=== PATIENT | female | born 1950 | race Caucasian/White ===

== ENCOUNTER → 2018-01-25 | Outpatient (CLI) | payer MEDICARE, BC ==
[2018-01-25 16:31] LABS: BASO % 0 % (0-3); EOS # 0.3 x10^3/uL (0.0-0.7); EOS % 3 % (0-3); HEMATOCRIT 42.3 % (36.0-47.0); HEMOGLOBIN 13.8 g/dL (12.0-15.5); LYMPH # 1.9 x10^3/uL (1.0-4.8); LYMPH % 21 % (24-48); MEAN CORPUSCULAR HEMOGLOBIN 32 pg (25-35); MEAN CORPUSCULAR HGB CONC 33 g/dL (31-37); MEAN CORPUSCULAR VOLUME 96 fL (79-100); MONO # 0.9 x10^3/uL (0.0-1.1); MONO % 10 % (0-9); NEUT # 5.8 x10^3uL (1.8-7.7); NEUT % 65 % (31-73); PLATELET COUNT 254 x10^3/uL (140-400); RED BLOOD COUNT 4.39 x10^6/uL (3.50-5.40); RED CELL DISTRIBUTION WIDTH 13.3 % (11.5-14.5); WHITE BLOOD COUNT 8.9 x10^3/uL (4.0-11.0)
== END | disposition home or self-care (01) ==
LOC: LAB 15:49
PROVIDERS: ATTEND Internal Medicine
DX: R10.32 Left lower quadrant pain (principal)
CPT/HCPCS: 36415; 85025

== ENCOUNTER 2019-08-31 20:06 | Inpatient (IN) | payer MEDICARE, BC ==
[~2019-08-31] VITALS: Ht 165.1 cm; Wt 57.2 kg
[2019-08-31] MEDS ORDERED: IV NORMAL SALINE 500ML 500 ML IV ONE ×2 (20:45→21:30)
--- NOTE | 2019-08-31 20:56 | PHYS DOC ---
Past History Past Medical History: Diabetes, High Cholesterol, Hypothyroid, Hypotension, Stroke Past Surgical History: Hip Replacement, Hysterectomy, Tonsillectomy Alcohol Use: None Drug Use: None Adult General Chief Complaint Chief Complaint: SYNCOPE HPI HPI Patient is a 69-year-old female brought in by ambulance history of type 1 diabetes she has a history of a prior stroke she had been on Plavix just get taken off that in July she says that she has coronary artery disease they wanted to a bypass surgery on her but have been reluctant to do so (ACCORDING to the patient the docs at [facility] have said they want her carotid artery (60%) to be fixed before the cabg) she says she has never had a heart attack she says she has no artificial valves in her heart. She is normally followed at [facility]. She does take Lantus at night and Humalog sliding scale after meals. Tonight she was at her's daughters how she had chili for dinner when she was getting into the car to go home she had a witnessed syncopal event family member helped her down so that she did not hit her head. Initial blood pressure was in the 80s and the blood sugar was checked in the 400 range. She is currently feeling much better blood sugars down to 370 blood pressure. baseline creatinine pt tells me is 1.6 she follows with nephrology also has hx of RA, on monthly infusion for that not on steroids. Review of Systems Review of Systems Constitutional: Denies fever or chills [] Eyes: Denies change in visual acuity, redness, or eye pain [] HENT: Denies nasal congestion or sore throat [] Respiratory: Denies cough or shortness of breath [] Cardiovascular: No additional information not addressed in HPI [] Integument: Denies rash or skin lesions [] All other systems were reviewed and found to be within normal limits, except as documented in this note. Current Medications Current Medications Current Medications Medications (Trade) Dose Ordered Sig/Agustin Start Time Stop Time Status Last Admin Dose Admin Sodium Chloride 500 ml @ 0 mls/hr 1X ONCE 08/31/19 20:45 08/31/19 20:47 DC 08/31/19 20:44 500 MLS/HR Allergies Allergies Allergies Coded Allergies Type Severity Reaction Last Updated Verified No Known Drug Allergies 08/31/19 No Physical Exam Physical Exam Constitutional: Well developed, well nourished, no acute distress, non-toxic appearance. [] HENT: Normocephalic, atraumatic, bilateral external ears normal, oropharynx dry, no oral exudates, nose normal. [] Eyes: PERRLA, EOMI, conjunctiva normal, no discharge. [] Neck: Normal range of motion, no tenderness, supple, no stridor. [] Cardiovascular:Heart rate regular rhythm, no murmur [] Lungs & Thorax: Bilateral breath sounds clear to auscultation [] Abdomen: Bowel sounds normal, soft, no tenderness, no masses, no pulsatile masses. [] Skin: Warm, dry, no erythema, no rash. [] Back: No tenderness, no CVA tenderness. [] Extremities: No tenderness, no cyanosis, no clubbing, ROM intact, no edema. [] Neurologic: Alert and oriented X 3, normal motor function, normal sensory function, no focal deficits noted. [] Psychologic: Affect normal, judgement normal, mood normal. [] Current Patient Data Vital Signs Vital Signs Date Time Temp Pulse Resp B/P (MAP) Pulse Ox O2 Delivery O2 Flow Rate FiO2 08/31/19 20:17 98.0 67 18 97 Room Air Lab Results BP 106/46 EKG EKG []Normal sinus rhythm QTC 479 rate 68 no STEMI there is repolarization abnormality in lead 1 and lead aVL. Is evidence of LVH no old EKG ischemia is on the differential but it's probably more likely re-pole abnormality. Radiology/Procedures Radiology/Procedures [] Impressions: CHNIQUE: Single portable radiograph of the chest FINDINGS: Mild cardiomegaly. The lungs are clear bilaterally. The costophrenic sulci are clear and well demarcated. IMPRESSION: No radiographic evidence of an acute cardiopulmonary process. Electronically signed by: Sebastián Rick MD (08/31/2019 9:09 PM) [facility] DICTATED AND SIGNED BY: SEBASTIÁN RICK MD DATE: 08/31/192108 CC: LUIS VANCE MD; MARKY CANTOR Course & Med Decision Making Course & Med Decision Making Pertinent Labs and Imaging studies reviewed. (See chart for details) []Syncope elevated blood sugar 69-year-old female multiple medical problems normally followed at [facility] prior history of CVA was on Plavix up until July 25 apparently has a history of carotid stenosis reports history of multivessel coronary disease awaiting CABG denies any symptoms related to that says does not get chest pain never had NC history of chronic kidney disease baseline creatinine of 1.6 also rheumatoid arthritis on monthly infusions history of hypertension but also has had issues with hypotension she tells me she thinks she was diagnosed with orthostatic hypotension at 1 point, also history of type 1 diabetes Presenting after a syncopal episode apparently had a witnessed syncopal she went down was out for about 20 seconds no seizure activity here workup does reveal a bump in the creatinine of 2.4 patient was hydrated for this noted the bump in troponin no chest pain patient has no events on the desk monitor in the emergency room blood pressure at 9:45 PM is 127/41 map of 79 this was improved it was in the 90s when she first arrives. Urinalysis currently pending I spoke with Dr. perea 920 pm discussed labs, plan to admit fo robs bg is 280 no anion gpa cxr neg for pna Dragon Disclaimer Dragon Disclaimer This electronic medical record was generated, in whole or in part, using a voice recognition dictation system. Departure Departure: Impression: Primary Impression: Elevated blood sugar Additional Impression: Syncope Disposition: ADMITTED INPATIENT Admitting Physician: Yvan Perea Condition: STABLE Referrals: MARKY CANTOR (PCP) Problem Qualifiers LUIS VANCE MD Aug 31, 2019 20:56
[2019-08-31 21:07] LABS: BASO # 0.1 x10^3/uL (0.0-0.2); BASO % 1 % (0-3); EOS # 0.1 x10^3/uL (0.0-0.7); EOS % 1 % (0-3); HEMATOCRIT 40.7 % (36.0-47.0); HEMOGLOBIN 13.6 g/dL (12.0-15.5); LYMPH # 2.4 x10^3/uL (1.0-4.8); LYMPH % 22 % (24-48); MEAN CORPUSCULAR HEMOGLOBIN 32 pg (25-35); MEAN CORPUSCULAR HGB CONC 33 g/dL (31-37); MEAN CORPUSCULAR VOLUME 95 fL (79-100); MONO # 1.3 x10^3/uL (0.0-1.1); MONO % 12 % (0-9); NEUT # 6.8 x10^3uL (1.8-7.7); NEUT % 63 % (31-73); PLATELET COUNT 235 x10^3/uL (140-400); RED BLOOD COUNT 4.28 x10^6/uL (3.50-5.40); RED CELL DISTRIBUTION WIDTH 13.3 % (11.5-14.5); WHITE BLOOD COUNT 10.7 x10^3/uL (4.0-11.0)
--- NOTE | 2019-08-31 21:12 | RAD ---
EXAM: CHEST 1 VIEW History: Syncope COMPARISON: None available. TECHNIQUE: Single portable radiograph of the chest FINDINGS: Mild cardiomegaly. The lungs are clear bilaterally. The costophrenic sulci are clear and well demarcated. IMPRESSION: No radiographic evidence of an acute cardiopulmonary process. Electronically signed by: Sebastián Rick MD (08/31/2019 9:09 PM) [facility]
[2019-08-31 21:13] LABS: ALBUMIN 3.4 g/dL (3.4-5.0); ALBUMIN/GLOBULIN RATIO 1.1 (1.0-1.7); CALCIUM 8.5 mg/dL (8.5-10.1); CREATININE 2.4 mg/dL (0.6-1.0); GFR 20.1; MAGNESIUM 2.4 mg/dL (1.8-2.4); POTASSIUM 4.5 mmol/L (3.5-5.1); TOTAL BILIRUBIN 0.3 mg/dL (0.2-1.0); TOTAL PROTEIN 6.4 g/dL (6.4-8.2)
[2019-08-31] MEDS ORDERED: ASPIRIN 81 MG TAB.CHEW ONE (21:30)
[2019-08-31] MEDS ORDERED: ASPIRIN 81 MG TAB.CHEW PO ONE (22:00)
[2019-08-31 22:20] LABS: BACTERIA,URINE MANY /HPF (0-FEW); BILIRUBIN,URINE NEG (NEG); CLARITY,URINE CLOUDY; COLOR,URINE YELLOW; GLUCOSE,URINE >=1000 mg/dL (NEG); NITRITE,URINE POS (NEG); RBC,URINE OCC /HPF (0-2); UROBILINOGEN,URINE 0.2 mg/dL (0.2 mg/dL)
[2019-08-31] MEDS: IV NORMAL SALINE 1,000ML 1,000 ML IV SCH (22:26)
[2019-08-31 22:50] VITALS: BP 134/56
--- NOTE | 2019-08-31 23:20 | NUR ---
The patient, SIOBHAN SPANN, 69 y/o, F admitted by CAL CONTRERAS MD, was given written information regarding hospital policies, unit procedures and contact persons. Home medications and past medical/surgical history were verified with patient. Bed locked and in lowest position, call light within reach. Valuables were checked and taken home by family.
[2019-08-31] MEDS ORDERED: CRESTOR20 MG PO (23:45)
[2019-08-31] MEDS ORDERED: LEVO125T PO (23:45)
[2019-08-31] MEDS ORDERED: METO25TA4 PO (23:45)
[2019-08-31] MEDS ORDERED: LOSA25TA11 PO (23:45)
[2019-08-31] MEDS ORDERED: BRIM5DRO2 OP (23:45)
[2019-08-31] MEDS ORDERED: INSU100V8 SQ (23:45)
[2019-08-31] MEDS ORDERED: INSU100C SQ (23:45)
[2019-09-01] VITALS (25 sets, daily range): BP systolic 92–159; BP diastolic 35–71
--- NOTE | 2019-09-01 03:50 | EKG ---
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
[2019-09-01 05:13] LABS: CALCIUM 7.3 mg/dL (8.5-10.1); GFR 24.9
[2019-09-01] MEDS ORDERED: DEXTROSE 50% 25 GM / 50ML DISP.SYRIN. IV PRN (07:30)
--- NOTE | 2019-09-01 07:52 | PDOC2 ---
TOMY MOMIN [employer]YE[employer]ITCHER 09/01/19 0752: CARDIAC CONSULT DATE OF CONSULT Date Of Consult DATE: 09/01/19 TIME: 07:45 REASON FOR CONSULT Reason for Consult syncope, cardiac history REFERRING PHYSICIAN Referring Physician Dr. Robles SOURCE Source: Chart review, Patient HPI History of Present Illness This is a 69 yo female who presented secondary to syncopal events. Son was assisting the patient out of the car when she had a syncopal episode. Patient reports she had just stood and and then felt slightly dizzy prior to passing out. Son was able to assist her down the garage floor. EMS was called. She denies any chest pain, palpitations, shortness of breath, or nausea/vomiting. Reports recent cardiac cath PAST MEDICAL HISTORY Cardiovascular: CAD, HTN CENTRAL NERVOUS SYSTEM: CVA, Periperal neuropathy Rheumatologic: Rheumatoid arthritis Renal/: Chronic renal insuff Endocrine: Diabetes, Hypothyroidism PAST SURGICAL HISTORY Past Surgical History: Hysterectomy, Tonsillectomy, Other (thyroidectomy ) FAMILY HISTORY Family History: Other (no pertinent hx) SOCIAL HISTORY Smoke: 1 pack per day ALCOHOL: none Drugs: None Lives: Alone CURRENT MEDICATIONS Current Medications Current Medications Sodium Chloride 500 ml @ 0 mls/hr 1X ONCE IV Last administered on 08/31/19at 20:44; Start 08/31/19 at 20:45; Stop 08/31/19 at 20:47; Status DC Sodium Chloride 500 ml @ 500 mls/hr 1X ONCE IV Last administered on 08/31/19at 21:29; Start 08/31/19 at 21:30; Stop 08/31/19 at 22:29; Status DC Aspirin (Children'S Aspirin) 324 mg 1X ONCE PO Last administered on 08/31/19at 21:30; Start 08/31/19 at 22:00; Stop 08/31/19 at 22:01; Status DC Aspirin (Children'S Aspirin) 81 mg STK-MED ONCE .ROUTE ; Start 08/31/19 at 21:30; Stop 08/31/19 at 21:30; Status DC Sodium Chloride 1,000 ml @ 75 mls/hr [id number] IV Last administered on 08/31/19at 22:26; Start 08/31/19 at 22:30; Stop 09/01/19 at 22:29 Ceftriaxone Sodium 1 gm/ Sodium Chloride 50 ml @ 100 mls/hr 1X ONCE IV Last administered on 08/31/19at 23:15; Start 08/31/19 at 23:00; Stop 08/31/19 at 23:29; Status DC Insulin Glargine (Lantus Syringe) 25 unit HS SQ ; Start 09/01/19 at 21:00 Levothyroxine Sodium (Synthroid) 125 mcg DAILYAC PO ; Start 09/01/19 at 07:30 Brimonidine Tartrate (Alphagan) 1 drop DAILY OU ; Start 09/01/19 at 09:00 Atorvastatin Calcium (Lipitor) 80 mg QHS PO ; Start 09/01/19 at 21:00 Insulin Human Lispro (HumaLOG) 0-7 UNITS TIDWMEALS SQ ; Start 09/01/19 at 08:00 Dextrose (Dextrose 50%-Water Syringe) 12.5 gm PRN Q15MIN PRN IV SEE COMMENTS; Start 09/01/19 at 07:30 Timolol Maleate (Timoptic 0.5% Ophth) 1 drop DAILY OU ; Start 09/01/19 at 09:00 Active Scripts Active Reported Humalog (Insulin Lispro) 100 Unit/1 Ml Cartridge 100 Unit SQ TIDWMEALS PRN Sliding Scale per patients regiman Lantus (Insulin Glargine,Hum.rec.anlog) 100 Unit/1 Ml Vial 25 Unit SQ HS Combigan Eye Drops (Brimonidine Tartrate/Timolol) 5 Ml Drops 5 Ml OP DAILY Metoprolol Tartrate 25 Mg Tablet 25 Mg PO BID Crestor (Rosuvastatin Calcium) 20 Mg Tablet 20 Mg PO HS Losartan Potassium (Losartan Potassium) 25 Mg Tablet 25 Mg PO DAILY Synthroid (Levothyroxine Sodium) 125 Mcg Tablet 125 Mcg PO DAILYAC ALLERGIES Allergies: Coded Allergies: No Known Drug Allergies (Unverified , 08/31/19) ROS Review of Systems 14 point ROS conducted with pertinent positives noted above in HPI. PHYSICAL EXAM General: Alert, Oriented X3, Cooperative, No acute distress HEENT: Atraumatic, Mucous membr. moist/pink Lungs: Clear to auscultation, Normal air movement Heart: Regular rate, Normal S1, Normal S2, Other (2/6 systolic murmur ) Abdomen: Soft, No tenderness Extremities: No edema, Normal pulses Skin: No breakdown Neuro: Normal speech, Sensation intact Psych/Mental Status: Mental status NL, Mood NL MUSCULOSKELETAL: Osteoarthritic changes both hands VITALS Vital Signs Vital Signs Date Time Temp Pulse Resp B/P (MAP) Pulse Ox O2 Delivery O2 Flow Rate FiO2 09/01/19 06:25 98.2 66 18 105/44 (64) 96 Room Air LABS LABS Laboratory Tests Test 08/31/19 20:30 08/31/19 21:54 08/31/19 22:55 09/01/19 04:45 White Blood Count 10.7 x10^3/uL (4.0-11.0) Red Blood Count 4.28 x10^6/uL (3.50-5.40) Hemoglobin 13.6 g/dL (12.0-15.5) Hematocrit 40.7 % (36.0-47.0) Mean Corpuscular Volume 95 fL (79-100) Mean Corpuscular Hemoglobin 32 pg (25-35) Mean Corpuscular Hemoglobin Concent 33 g/dL (31-37) Red Cell Distribution Width 13.3 % (11.5-14.5) Platelet Count 235 x10^3/uL (140-400) Neutrophils (%) (Auto) 63 % (31-73) Lymphocytes (%) (Auto) 22 % (24-48) Monocytes (%) (Auto) 12 % (0-9) Eosinophils (%) (Auto) 1 % (0-3) Basophils (%) (Auto) 1 % (0-3) Neutrophils # (Auto) 6.8 x10^3uL (1.8-7.7) Lymphocytes # (Auto) 2.4 x10^3/uL (1.0-4.8) Monocytes # (Auto) 1.3 x10^3/uL (0.0-1.1) Eosinophils # (Auto) 0.1 x10^3/uL (0.0-0.7) Basophils # (Auto) 0.1 x10^3/uL (0.0-0.2) Sodium Level 139 mmol/L (136-145) 139 mmol/L (136-145) Potassium Level 4.5 mmol/L (3.5-5.1) 5.0 mmol/L (3.5-5.1) Chloride Level 102 mmol/L (98-107) 106 mmol/L (98-107) Carbon Dioxide Level 26 mmol/L (21-32) 21 mmol/L (21-32) Anion Gap 11 (6-14) 12 (6-14) Blood Urea Nitrogen 54 mg/dL (7-20) 52 mg/dL (7-20) Creatinine 2.4 mg/dL (0.6-1.0) 2.0 mg/dL (0.6-1.0) Estimated GFR (Cockcroft-Gault) 20.1 24.9 BUN/Creatinine Ratio 23 (6-20) Glucose Level 283 mg/dL (70-99) 319 mg/dL (70-99) Calcium Level 8.5 mg/dL (8.5-10.1) 7.3 mg/dL (8.5-10.1) Magnesium Level 2.4 mg/dL (1.8-2.4) Total Bilirubin 0.3 mg/dL (0.2-1.0) Aspartate Amino Transf (AST/SGOT) 21 U/L (15-37) Alanine Aminotransferase (ALT/SGPT) 27 U/L (14-59) Alkaline Phosphatase 81 U/L (46-116) Troponin I Quantitative 0.103 ng/mL (0-0.055) 0.099 ng/mL (0-0.055) Total Protein 6.4 g/dL (6.4-8.2) Albumin 3.4 g/dL (3.4-5.0) Albumin/Globulin Ratio 1.1 (1.0-1.7) Lipase 123 U/L (73-393) Ethyl Alcohol Level < 10 mg/dL (0-10) Urine Collection Type U cath Urine Color Yellow Urine Clarity Cloudy Urine pH 5.0 Urine Specific [place] 1.010 Urine Protein Neg (NEG-TRACE) Urine Glucose (UA) >=1000 mg/dL (NEG) Urine Ketones (Stick) Neg mg/dL (NEG) Urine Blood Trace (NEG) Urine Nitrite Pos (NEG) Urine Bilirubin Neg (NEG) Urine Urobilinogen Dipstick 0.2 mg/dL (0.2 mg/dL) Urine Leukocyte Esterase Trace (NEG) Urine RBC Occ /HPF (0-2) Urine WBC 5-10 /HPF (0-4) Urine Squamous Epithelial Cells None /LPF Urine Bacteria Many /HPF (0-FEW) Lactic Acid Level 1.3 mmol/L (0.4-2.0) ASSESSMENT/PLAN Assessment/Plan 1. Syncopal episode. Dehydration, hypotension contributing. No acute events on tele 2. CAD; recent cath with multi-vessel disease. CABG was discussed but patient reports currently medically managed. 3. Carotid artery disease; details unclear. 4. Mild troponin elevations; peak 0.103. Most probably type II, demand ischemia in setting of CATIE and UTI. 5. CATIE on CKD 6. H/o hypertension; presently hypotensive 7. Diabetes, I 8. H/o CVA 9. UTI; as per PCP Recommendations Orthostatic vitals Ongoing IVFs Hold antiHTN therapy for now ASA, statin therapy Obtain records from [facility] Further recommendations pending above. Supportive care. AYALA LEAL MD 09/01/191921: CARDIAC CONSULT ASSESSMENT/PLAN Assessment/Plan Patient seen and examined. Agree with [employer] S[employer]ICER's assessment and plan. Syncope most probably secondary to orthostasis Agree with IV hydration CAD clinically stable We will obtain records from [facility] and make recommendations regarding revascularization options Thank you for your consultation TOMY MOMIN APRN Sep 01, 2019 07:52 AYALA LEAL MD Sep 01, 2019 19:22
[2019-09-01] MEDS: LEVOTHYROXINE 125 MCG TABLET PO SCH (08:33)
[2019-09-01] MEDS: TIMOLOL 0.5% OPHTH SOLUTION 5ML BOTTLE. OU SCH (08:33)
[2019-09-01] MEDS: BRIMONIDINE 0.2% OPHTH SOLUTION 5ML BOTTLE. OU SCH (08:33)
[2019-09-01] MEDS: INSULIN LISPRO 300 UNITS/3 ML VIAL. SQ SCH ×3 (08:36→17:04)
[2019-09-01] MEDS: ASPIRIN ENTERIC COATED 81 MG TABLET.DR. PO SCH (08:37)
[2019-09-01] MEDS: IV NORMAL SALINE 1,000ML 1,000 ML IV SCH ×2 (14:30→18:12)
--- NOTE | 2019-09-01 17:41 | HP ---
ADMIT DATE: HISTORY OF PRESENT ILLNESS: The patient is a 69-year-old female patient, who was brought by ambulance. She was brought to the Emergency Room with a witnessed syncopal episode. According to her, she was getting into the car to go home. She had a witnessed syncopal event. Her son ____ down, so that she did not hit her head. Her initial blood pressure was in the 80s and the blood sugar was checked in the 400 range. By the time she arrived to the Emergency Room, her blood pressure was within normal range, but blood sugar was high at 370. Her baseline creatinine was about 1.6 and she follows with a metal finisher. She was extensively evaluated in the Emergency Room and her lab work showed that her BUN and creatinine are markedly elevated at 54 and 2.4. Her first set of cardiac enzymes showed troponin to be slightly elevated at 0.130. Urinalysis was unremarkable and toxic screen showed blood alcohol to be less than 10. Her EKG showed that she was in sinus rhythm with a heart rate of 68, corrected QT interval 479. No evidence of ST segment elevation; however, she has evidence of left ventricular hypertrophy. Her chest x-ray was unremarkable with no radiographic evidence of acute cardiopulmonary process. She was admitted to do 2 more sets of cardiac enzyme and to rehydrate her as her creatinine was found to be high at 2.4. PAST MEDICAL HISTORY: Significant for diabetes mellitus type 1, hyperlipidemia, hypothyroidism, history of TIA and CVA. She apparently has first episode of cerebrovascular accident in April 2006, second one was in May 2019. She is known to have chronic kidney disease and follows with a metal finisher. She is known to have rheumatoid arthritis, for which she gets monthly infusion of Orencia. She is known to have glaucoma and senile macular degeneration. PAST SURGICAL HISTORY: Significant for bilateral cataract extraction, tonsillectomy, total abdominal hysterectomy, bilateral salpingo-oophorectomy, left total hip arthroplasty and colonoscopy. She apparently has also surgery on her retina for senile macular degeneration. ALLERGIES: She has no known drug allergies. MEDICATIONS: She is on Crestor 20 mg once a day, metoprolol tartrate 25 mg p.o. b.i.d., losartan potassium 25 mg once a day. She is on Combigan 1 drop to both eyes daily and she is on Lantus insulin 25 units at bedtime, Humalog insulin as per insulin sliding scale 3 times a day before meals. She is on levothyroxine sodium 125 mcg once a day. FAMILY HISTORY: She has 2 brothers, both in their early 70s due to myocardial infarction. Her father at age of 80 because of pancreatic cancer and mother at age of 77 because of pancreatic cancer. SOCIAL HISTORY: Her was recently . She is , lives alone. She has 2 sons and 1 daughter. She continued to smoke a pack a day, does not drink alcohol or use recreational drugs. 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 REVIEW OF SYSTEMS: The patient has bilateral cataract extraction. She is known to have glaucoma and macular degeneration. Denied any earache, tinnitus or sensorineural deafness. Denied any nosebleeds, stuffy nose or postnasal drip. Denied any sore throat, sore tongue, toothache, hoarseness of voice or difficulty swallowing. Denied any nausea, vomiting, diarrhea or constipation. Did loss 20 pounds intentionally. Denied any hematemesis, melena or hematochezia. Denied any dysuria, frequency or hematuria. However, she has urinary incontinence and occasional diarrhea. Denied any chest pain, shortness of breath, orthopnea, paroxysmal nocturnal dyspnea. Denied any cough, phlegm or hemoptysis. She has obviously had syncopal episode, but denied any palpitation or vertigo. PHYSICAL EXAMINATION: GENERAL: On arrival to the Emergency Room, she was pale, somewhat cachectic, but not jaundiced, cyanosis or thyromegaly. No jugular venous distention. No limb edema. VITAL SIGNS: Her heart rate was 67, blood pressure was 93/38, temperature was 98, respiratory rate was 18 and oxygen saturation was 97% on room air. HEAD, EYES, EARS, NOSE AND THROAT: Showed normocephalic, atraumatic. NECK: Supple. HEART: Showed normal first and second heart sounds. No gallop, rub or murmur. CHEST: Clear to auscultation. No crepitation or rhonchi. ABDOMEN: Distended, soft, nontender. No guarding or rigidity. No organomegaly. All hernial orifice intact. Bowel sounds normal. NEUROLOGIC: She was awake, alert, responding appropriately. All cranial nerves intact. EXTREMITIES: She moves extremities without difficulty. She, according to nursing staff, was extremely unsteady on her feet and she continued to have marked postural hypertension. LABORATORY DATA: On admission showed her white cell count to be 10,700, hemoglobin 13.6, hematocrit 40.7, MCV 95, and platelet count of 235,000 with normal manual differential. Her chemistry showed a serum sodium 139, potassium 4.5, chloride 102, bicarbonate 26, anion gap of 11, BUN 54, creatinine 2.4, estimated GFR was 20 mL per minute. Her glucose was 283, calcium was 8.5, magnesium 2.4. Total bilirubin, AST, ALT, alkaline phosphatase were normal. Her lactic acid was only 1.3 and troponin was 0.103. Total protein was 6.4, albumin was 3.4. Her serum lipase was 123. Urinalysis showed the urine was yellow, cloudy with a pH of 5, specific gravity of 1.010. The urine was negative for protein. There was large amount of glucose, negative for ketones, trace of blood, positive for nitrite. There was trace of leukocyte esterase, occasional rbc's, 5-10 wbc's, and many bacteria. Her chest x-ray showed mild cardiomegaly. The lungs are clear bilaterally. The costophrenic sulci are clear and well demarcated. ASSESSMENT AND PLAN: The patient was admitted for rehydration, to do 2 more sets of cardiac enzyme and to consult the Cardiology team. It transpired that the patient has had cardiac catheterization, which showed she has multivessel disease and also what seemed to be right carotid artery stenosis. She is not a candidate for stenting and according to her, she has not heard from the Cardiology team regarding which procedure needed to be done whether the carotid artery endarterectomy and/or coronary artery bypass graft surgery. We have requested the records from [facility]. CAL CONTRERAS MD DR: LORI/nati JOB#: [id number] / [id number]
[2019-09-01] MEDS: ATORVASTATIN CALCIUM 20 MG TABLET PO SCH (20:34)
[2019-09-01] MEDS: INSULIN GLARGINE SYRINGE. SQ SCH (20:36)
[2019-09-02] VITALS (14 sets, daily range): BP systolic 86–164; BP diastolic 49–81
--- NOTE | 2019-09-02 03:47 | PN ---
DATE: 09/01/2019 SUBJECTIVE: The patient is resting slightly propped up in bed, in no apparent distress. She is awake, alert. On questioning her, she denied any complaints, in particular denied any chest pain, shortness of breath, cough, phlegm or hemoptysis. Denied any orthopnea or paroxysmal nocturnal dyspnea. According to the nursing staff, the patient continued to appear to have marked postural hypertension and she also has very unsteady gait, some of which is related to the fact that she has a discrepancy in the length of her legs after she had her left hip arthroplasty. PHYSICAL EXAMINATION: GENERAL: When I examined her this afternoon, she was resting slightly propped up in bed, in no apparent respiratory distress. She was somewhat pale, cachectic, but no jaundice, cyanosis or thyromegaly. No jugular venous distention. No lower limb edema. VITAL SIGNS: Her heart rate was 65, blood pressure was 92/42, temperature was 98.5, respiratory rate was 18 and oxygen saturation was 95% on room air. HEAD, EYES, EARS, NOSE AND THROAT: Showed normocephalic, atraumatic. NECK: Supple. HEART: Showed normal first and second heart sounds. No gallop or murmur. CHEST: Clear to auscultation. No crepitation or rhonchi. ABDOMEN: Distended, soft, nontender. NEUROLOGIC: She was awake, alert, responding appropriately. All cranial nerves intact. She moves extremities without difficulty, though she is mostly bedbound. Her intake over the last 24 hours was 1050, no output was recorded. LABORATORY DATA: As of this morning showed a serum sodium 139, potassium 5.5, chloride 106, bicarbonate 21, anion gap 12, BUN 52, creatinine 2, estimated GFR was 25 mL per minute. Her glucose was 319 and calcium was 7.3. She has 2 more sets of cardiac enzymes, the first one showed troponin to be 0.099, the second one was 0.075. Her blood sugar continues to be markedly elevated. ASSESSMENT: 1. Syncopal episode, cause of which is not clear. She was on multiple antihypertensive medications that were put on hold. She has also longstanding type 1 diabetes and obviously autonomic neuropathy might be contributing. It could be also that she is dehydrated. 2. Coronary artery disease with apparently multivessel disease and right carotid artery stenosis. 3. Hyperlipidemia. 4. Glaucoma. 5. Senile macular degeneration. 6. Hypothyroidism. Apparently, the patient has also multiple cerebrovascular accidents and chronic kidney disease. She also has rheumatoid arthritis for which she is on Orencia infusion once a month. She is not on any steroids. We have consulted the Cardiology team. PLAN: We will continue with IV fluid for now and monitor her lab work and we have requested records from [facility]. CAL CONTRERAS MD DR: LORI/nati JOB#: [id number] / [id number]
[2019-09-02 06:30] LABS: CALCIUM 7.7 mg/dL (8.5-10.1); CREATININE 1.6 mg/dL (0.6-1.0); GFR 32.2; POTASSIUM 4.3 mmol/L (3.5-5.1)
[2019-09-02] MEDS: ASPIRIN ENTERIC COATED 81 MG TABLET.DR. PO SCH (08:33)
[2019-09-02] MEDS: LEVOTHYROXINE 125 MCG TABLET PO SCH (08:33)
[2019-09-02] MEDS: TIMOLOL 0.5% OPHTH SOLUTION 5ML BOTTLE. OU SCH (08:35)
[2019-09-02] MEDS: BRIMONIDINE 0.2% OPHTH SOLUTION 5ML BOTTLE. OU SCH (08:35)
[2019-09-02] MEDS: INSULIN LISPRO 300 UNITS/3 ML VIAL. SQ SCH ×3 (08:37→17:55)
--- NOTE | 2019-09-02 16:40 | NUR ---
[facility] records request faxed again today and called [facility] to ask for records to be faxed to facility.
--- NOTE | 2019-09-02 20:01 | PN ---
DATE: 09/02/2019 SUBJECTIVE: The patient is sitting comfortably in her chair, in no apparent respiratory distress. On questioning her, denied any complaint. Nursing staff stated she continued to be weak and unsteady on her feet. However, she denied any chest pain or shortness of breath. Denied any dizziness, lightheadedness, or vertigo. PHYSICAL EXAMINATION: GENERAL: When I examined her, she was pale, but no jaundice, cyanosis or thyromegaly. No jugular venous distention or limb edema. VITAL SIGNS: Her heart rate was 92, blood pressure was 142/81, temperature was 97.4, respiratory rate was 18 and oxygen saturation was 96%. HEAD, EYES, EARS, NOSE AND THROAT: Normocephalic, atraumatic. NECK: Supple. HEART: Showed normal first and second heart sounds. No gallop or murmur. CHEST: Clear to auscultation. No crepitation or rhonchi. ABDOMEN: Distended, soft, nontender. No guarding or rigidity. No organomegaly. All hernial orifice intact. Bowel sounds normal. NEUROLOGIC: She is awake, alert, responding appropriately. All cranial nerves intact. She moves extremities without difficulty. LABORATORY DATA: Her lab work this morning showed her serum sodium was 144, potassium 4.3, chloride 112, bicarbonate 23, anion gap of 9, BUN 45, creatinine 1.6, estimated GFR was 32 mL per minute. Her glucose was 168, potassium 7.7. CK was only 48. ASSESSMENT AND PLAN: 1. Syncopal episode, likely multifactorial including dehydration and autonomic neuropathy. She had type 1 diabetes since she was 30 years old, 2. Coronary artery disease, status post recent catheterization with multivessel disease. Apparently, she has also carotid artery stenosis. 3. Acute on chronic kidney injury, improving. Her creatinine is down from 2.4-1.6 4. Type 1 diabetes, reasonably controlled. 5. Urinary tract infection with growth for which she is on IV. So far, all her cultures are negative. There is no fever or leukocytosis. We will continue to monitor her closely and if she spikes temperature, plan is to await the records from [facility]. Meanwhile, continue with all her current plan of management. She will probably require physical therapy either in a custodial facility and/or home with Home Health. CAL CONTRERAS MD DR: Frandy JOB#: [id number] / [id number]
[2019-09-02] MEDS: INSULIN GLARGINE SYRINGE. SQ SCH (21:00)
[2019-09-02] MEDS ORDERED: ACETAMINOPHEN 325 MG TABLET PO PRN (21:30)
[2019-09-02] MEDS: ATORVASTATIN CALCIUM 20 MG TABLET PO SCH (22:08)
[2019-09-03 00:36] VITALS: BP 159/80
[2019-09-03 05:25] VITALS: BP 182/82
[2019-09-03 06:31] LABS: HEMATOCRIT 41.6 % (36.0-47.0); HEMOGLOBIN 13.8 g/dL (12.0-15.5); RED BLOOD COUNT 4.39 x10^6/uL (3.50-5.40); RED CELL DISTRIBUTION WIDTH 13.3 % (11.5-14.5); WHITE BLOOD COUNT 6.7 x10^3/uL (4.0-11.0)
[2019-09-03 06:52] LABS: ALBUMIN 2.9 g/dL (3.4-5.0); ALBUMIN/GLOBULIN RATIO 0.9 (1.0-1.7); CALCIUM 8.1 mg/dL (8.5-10.1); CREATININE 1.4 mg/dL (0.6-1.0); GFR 37.5; POTASSIUM 4.8 mmol/L (3.5-5.1); TOTAL BILIRUBIN 0.5 mg/dL (0.2-1.0)
[2019-09-03] MEDS: BRIMONIDINE 0.2% OPHTH SOLUTION 5ML BOTTLE. OU SCH (08:30)
[2019-09-03] MEDS: TIMOLOL 0.5% OPHTH SOLUTION 5ML BOTTLE. OU SCH (08:30)
[2019-09-03] MEDS: LEVOTHYROXINE 125 MCG TABLET PO SCH (08:30)
[2019-09-03] MEDS: ASPIRIN ENTERIC COATED 81 MG TABLET.DR. PO SCH (08:30)
[2019-09-03] MEDS: INSULIN LISPRO 300 UNITS/3 ML VIAL. SQ SCH ×3 (08:36→17:08)
--- NOTE | 2019-09-03 09:36 | PDOC ---
TOMY MOMIN PLAN MANAGER 09/03/19 0936: CARDIO Progress Notes Date & Time Date of Service DATE: 09/03/19 TIME: 09:35 Time of Evaluation 09:35 Subjective Notes No dizziness, syncope. C/o bilateral foot pain in bed last night. Vitals Vitals Vital Signs Date Time Temp Pulse Resp B/P (MAP) Pulse Ox O2 Delivery O2 Flow Rate FiO2 09/03/19 08:00 Room Air 09/03/19 05:25 97.6 58 18 182/82 (115) 94 09/01/19 11:30 97.0 Weight Weight [ ] Input and Output I.O. Intake and Output 09/03/19 07:00 Intake Total 1110 ml Output Total 1 ml Balance 1109 ml Intake Oral 1110 ml Output Urine Total 1 ml # Voids 3 Laboratory Labs Laboratory Tests Test 09/01/19 11:25 09/01/19 16:25 09/01/19 20:32 09/02/19 05:40 Glucose (Fingerstick) 362 mg/dL (70-99) 377 mg/dL (70-99) 247 mg/dL (70-99) Sodium Level 144 mmol/L (136-145) Potassium Level 4.3 mmol/L (3.5-5.1) Chloride Level 112 mmol/L (98-107) Carbon Dioxide Level 23 mmol/L (21-32) Anion Gap 9 (6-14) Blood Urea Nitrogen 45 mg/dL (7-20) Creatinine 1.6 mg/dL (0.6-1.0) Estimated GFR (Cockcroft-Gault) 32.2 Glucose Level 168 mg/dL (70-99) Calcium Level 7.7 mg/dL (8.5-10.1) Creatine Kinase 48 U/L (26-192) Thyroid Stimulating Hormone (TSH) 1.190 uIU/mL (0.358-3.740) Test 09/02/19 07:56 09/02/19 11:44 09/02/19 16:52 09/02/19 21:50 Glucose (Fingerstick) 151 mg/dL (70-99) 283 mg/dL (70-99) 285 mg/dL (70-99) 71 mg/dL (70-99) Test 09/03/19 06:15 09/03/19 07:31 White Blood Count 6.7 x10^3/uL (4.0-11.0) Red Blood Count 4.39 x10^6/uL (3.50-5.40) Hemoglobin 13.8 g/dL (12.0-15.5) Hematocrit 41.6 % (36.0-47.0) Mean Corpuscular Volume 95 fL (79-100) Mean Corpuscular Hemoglobin 32 pg (25-35) Mean Corpuscular Hemoglobin Concent 33 g/dL (31-37) Red Cell Distribution Width 13.3 % (11.5-14.5) Platelet Count 166 x10^3/uL (140-400) Sodium Level 143 mmol/L (136-145) Potassium Level 4.8 mmol/L (3.5-5.1) Chloride Level 109 mmol/L (98-107) Carbon Dioxide Level 24 mmol/L (21-32) Anion Gap 10 (6-14) Blood Urea Nitrogen 33 mg/dL (7-20) Creatinine 1.4 mg/dL (0.6-1.0) Estimated GFR (Cockcroft-Gault) 37.5 BUN/Creatinine Ratio 24 (6-20) Glucose Level 233 mg/dL (70-99) Calcium Level 8.1 mg/dL (8.5-10.1) Total Bilirubin 0.5 mg/dL (0.2-1.0) Aspartate Amino Transf (AST/SGOT) 25 U/L (15-37) Alanine Aminotransferase (ALT/SGPT) 27 U/L (14-59) Alkaline Phosphatase 67 U/L (46-116) Total Protein 6.0 g/dL (6.4-8.2) Albumin 2.9 g/dL (3.4-5.0) Albumin/Globulin Ratio 0.9 (1.0-1.7) Glucose (Fingerstick) 256 mg/dL (70-99) Microbiology Micro Microbiology 08/31/19 Blood Culture - Preliminary, Resulted NO GROWTH AFTER 2 DAYS... Physical Exams HEENT: Neck Supple W Full Motion Chest: Symmetric Lungs: Clear to Auscultation Heart: S1S2, RRR Abdomen: Soft N/T Extremities: No Edema Neurology: alert, oriented, follow commands Assessment Assessment 1. Syncopal episode. Most probably related to hypotension, dehydration, orthostasis. No acute events on tele 2. CAD; recent cath with multi-vessel disease as noted below. Echo 05/09 with LVEF 55-60%. CABG versus medical management was discussed. Patient was to quit smoking 2 months prior to surgery, which she has not yet done. 3. Carotid disease; moderate left proximal ICA stenosis as noted below 4. Mild troponin elevations; peak 0.103. Possibly type II, demand ischemia in setting of CATIE and UTI. 5. CATIE on CKD; improved with IVFs 6. Hypertension; blood pressures labile 7. Hyperlipidemia; statin 7. Diabetes, I 8. Recent CVA 9. Tobaccoism; discussed/encouraged cessation Recommendations Secondary prevention measures Encouraged adequate oral hydration Resume metoprolol when BP consistently adequate. Supportive care Cardiac cath 06/30/19 at [facility] Coronary angiography: LM: 40% stenosis distal segment LAD: 70% stenosis in the ostium and a focal 30% stenosis in distal segment LCX: Dominant. 70% stenosis in the ostium and completely occluded distally with a faint channel seen, leading down to the left posterolateral and left posterior descending artery branches. There was GLADIS-1 flow down into the posterior descending and posterolateral branches. There were bmuy-di-ceixv collateral coming from the LAD to the distal LCx. RCA: 90% stenosis in one of the sub-branches with GLADIS-3 flow. The first OM branch contained a 90% stenosis proximally with GLADIS-3 flow. Bilateral Carotid Duplex US 05/15/19 Impression: Moderate calcific plaque in the left carotid bifurcation and bulb, with findings suggesting a left proximal internal carotid artery stenosis in the 50-60% range. ROSA DAILEY MD 09/03/197: CARDIO Progress Notes Plan Plan Pt. seen and examined. Agree with above CUSTOMER OPERATIONS INTERN note. I discussed with the patient and her daughter extensively. OSH cath report reviewed. She could be considered for high risk LM PCI but at this time she has no chest pain and she leads a very sedentary lifestyle. She has preserved LV function. Would favor medical therapy with outpt discussion regarding revascularization through [facility]. Ok to BONI from CV standpoint. Thanks. TOMY MOMIN APRN Sep 03, 2019 09:36 ROSA DAILEY MD Sep 03, 2019 21:37
[2019-09-03 11:01] VITALS: BP 112/70
[2019-09-03 14:27] VITALS: BP 115/73
--- NOTE | 2019-09-03 16:32 | CARD ---
MR#: [id number] Date of Study: 09/02/2019 Ordering Physician: ROSA DAILEY, Referring Physician: ROSA DAILEY, Tech: Keyla St APPROVED REPORT EXAM: Two-dimensional and M-mode echocardiogram with Doppler and color Doppler. Other Information Quality : AverageHR: 76bpm Technically limited study due to smoking. INDICATION Cardiac Disease: CAD Syncope Elevated Troponin RISK FACTORS Hyperlipidemia Diabetes Smoking 2D DIMENSIONS RVDd2.6 (2.9-3.5cm)Left Atrium(2D)3.0 (1.6-4.0cm) IVSd1.2 (0.7-1.1cm)Aortic Root(2D)3.1 (2.0-3.7cm) LVDd4.0 (3.9-5.9cm)LVOT Diameter2.0 (1.8-2.4cm) PWd1.0 (0.7-1.1cm)LVDs3.3 (2.5-4.0cm) FS (%) 17.0 %SV25.3 ml LVEF(%)36.0 (>50%) Aortic Valve AoV Peak Lavon.108.5cm/sAoV VTI24.9cm AO Peak GR.4.7mmHgLVOT Peak Lavon.73.3cm/s LVOT VTI 18.09cmAO Mean GR.3mmHg IVETTE (VMAX)2.93ww0PYP (VTI)2.25cm2 Mitral Valve MV E Babriran93.5cm/sMV DECEL GUJA361ri MV A Ehwoowhv552.8cm/sE/A Ratio0.7 Tricuspid Valve TR P. Oyjiiaes453qk/sRAP YVUKCROG9hmXk TR Peak Gr.91wkGvZROQ00guKq Pulmonary Vein S1 Zkoyrzpx12.4cm/sD2 Ybbajyss37.2cm/s LEFT VENTRICLE The left ventricle is normal size. There is mild to moderate concentric left ventricular hypertrophy. Basal inferior and posterior wall hypokinesis. The Ejection Fraction is 45-50%. Transmitral Doppler flow pattern is Grade I-abnormal relaxation pattern. RIGHT VENTRICLE The right ventricle is normal size. There is normal right ventricular wall thickness. The right ventr icular systolic function is normal. ATRIA The left atrium size is normal. The right atrium size is normal. The interatrial septum is intact wit h no evidence for an atrial septal defect or patent foramen ovale as noted on 2-D or Doppler imaging. AORTIC VALVE The aortic valve is thickened but opens well. Doppler and Color Flow revealed no significant aortic r egurgitation. There is no significant aortic valvular stenosis. MITRAL VALVE The mitral valve is normal in structure and function. There is no evidence of mitral valve prolapse. There is no mitral valve stenosis. Doppler and Color Flow revealed no mitral valve regurgitation note d. TRICUSPID VALVE The tricuspid valve is normal in structure and function. Doppler and Color Flow revealed trace tricus pid regurgitation with an estimated PAP of 38 mmHg. There is no tricuspid valve stenosis. PULMONIC VALVE The pulmonic valve is not well visualized. Doppler and Color Flow revealed no pulmonic valvular regur gitation. GREAT VESSELS The aortic root is normal in size. The IVC is normal in size and collapses >50% with inspiration. PERICARDIAL EFFUSION There is no evidence of significant pericardial effusion. Critical Notification Critical Value: No <Conclusion> Basal inferior and posterior wall hypokinesis. The Ejection Fraction is 45-50%. Transmitral Doppler flow pattern is Grade I-abnormal relaxation pattern. Trace tricuspid regurgitation with an estimated PAP of 38 mmHg. There is no evidence of significant pericardial effusion. Signed by : Vamshi Grimm, Electronically Approved : 09/02/2019 13:38:36
[2019-09-03 18:40] VITALS: BP 126/75
[2019-09-03] MEDS: ATORVASTATIN CALCIUM 20 MG TABLET PO SCH (21:01)
[2019-09-03] MEDS: INSULIN GLARGINE SYRINGE. SQ SCH (21:04)
[2019-09-03 23:19] VITALS: BP 121/72
--- NOTE | 2019-09-04 04:25 | PN ---
DATE: SUBJECTIVE: The patient is sitting comfortably in her chair, in no apparent distress. On questioning her, denied any complaint. The nursing staff stated that she continued to be extremely weak and requires assistance with her ADLs and she cannot take care of herself at home and therefore we spoke with her with a plan to discharge her to a nursing home facility to continue with rehabilitation process and perhaps even long-term care. PHYSICAL EXAMINATION: GENERAL: When I examined her this afternoon, she looked pale, but no jaundice, cyanosis or thyromegaly. No jugular venous distension. No limb edema. VITAL SIGNS: Her heart rate was 84, blood pressure was 115/73, temperature was 97.3, respiratory rate was 20, and oxygen saturation was 98%. HEAD, EYES, EARS, NOSE AND THROAT: Normocephalic, atraumatic. NECK: Supple. HEART: Showed normal first and second heart sounds. No gallop or murmur. CHEST: Clear to auscultation. No crepitation or rhonchi. ABDOMEN: Distended, soft, nontender. No guarding or rigidity. No organomegaly. All hernial orifice intact. Bowel sounds normal. NEUROLOGIC: She is awake, alert, responding appropriately. All cranial nerves intact. She ambulates with a walker. Her intake was 419, no output was recorded. LABORATORY DATA: Her lab work this morning showed serum sodium 143, potassium 4.8, chloride 109, bicarbonate 24, anion gap of 10, BUN 33, creatinine 1.4, estimated GFR was 37 mL per minute. Her glucose was 233, calcium was 8.1. Total bilirubin, AST, ALT, alkaline phosphatase are normal. Total protein was 6, albumin was 2.9. Her white cell count was 6700, hemoglobin 13.8, hematocrit 42, MCV 95, and platelet count of 166,000. ASSESSMENT: 1. Syncopal episode, likely multifactorial including dehydration, autonomic neuropathy. She has type 1 diabetes since she was 30 years old. 2. Coronary artery disease, status post recent catheterization with multivessel disease. Apparently, she has also carotid artery stenosis. 3. Acute on chronic kidney injury, improving. Her creatinine is down from 2.4 to 1.4. 4. Type 1 diabetes mellitus, reasonably controlled. 5. Urinary tract infection for which she has not been on any intravenous antibiotic and her urinalysis was essentially unremarkable. Urinalysis showed that she has many bacteria and positive for nitrite. Unfortunately today, the urine was not sent for culture and sensitivity. I will treat her empirically with intravenous Rocephin and tomorrow she should go on cefdinir. CAL CONTRERAS MD DR: LORI/nati JOB#: [id number] / [id number]
[2019-09-04 06:01] VITALS: BP 171/80
[2019-09-04 06:54] LABS: CREATININE 1.3 mg/dL (0.6-1.0); GFR 40.9; POTASSIUM 4.8 mmol/L (3.5-5.1)
[2019-09-04] MEDS ORDERED: CLOPIDOGREL BISULFATE 75 MG TABLET PO SCH (08:00)
[2019-09-04] MEDS: INSULIN LISPRO 300 UNITS/3 ML VIAL. SQ SCH (08:00)
[2019-09-04] MEDS: LEVOTHYROXINE 125 MCG TABLET PO SCH (08:05)
--- NOTE | 2019-09-04 08:22 | NUR ---
Patient is alert and oriented. No complaints. Pt is to be discharging to Rehab today. Pt sitting up in bed, waiting for breakfast. RN did note mild tremors when taking medications. ADRIEN.
[2019-09-04] MEDS: ASPIRIN ENTERIC COATED 81 MG TABLET.DR. PO SCH (08:43)
[2019-09-04] MEDS: TIMOLOL 0.5% OPHTH SOLUTION 5ML BOTTLE. OU SCH (08:43)
[2019-09-04] MEDS: BRIMONIDINE 0.2% OPHTH SOLUTION 5ML BOTTLE. OU SCH (08:43)
--- NOTE | 2019-09-04 09:54 | NUR ---
Report called to [facility] at [facility]. Questions answered. IV out and tele off. Pt escorted via wheelchair and wheelchair van personnel. All belongings with patient.
[2019-09-04] MEDS ORDERED: LACTOBACILLUS RHAMNOSUS GG 1 CAPSULE. PO SCH (21:00)
== END 2019-09-04 09:50 | DRG 640 ==
LOC: ER 20:06 → ICU 21:43 → 1 SOUTH 09-02 18:25
PROVIDERS: ADMIT Internal Medicine; ATTEND Internal Medicine
DX: E86.0 Dehydration (principal); N17.0 Acute kidney failure with tubular necrosis; N39.0 Urinary tract infection, site not specified; I95.1 Orthostatic hypotension; E10.22 Type 1 diabetes mellitus with diabetic chronic kidney disease; I12.9 Hypertensive chronic kidney disease with stage 1 through stage 4 chronic kidney disease, or unspecified chronic kidney disease; N18.9 Chronic kidney disease, unspecified; I25.10 Atherosclerotic heart disease of native coronary artery without angina pectoris; G90.9 Disorder of the autonomic nervous system, unspecified; E10.43 Type 1 diabetes mellitus with diabetic autonomic (poly)neuropathy; E10.65 Type 1 diabetes mellitus with hyperglycemia; E78.00 Pure hypercholesterolemia, unspecified; E89.0 Postprocedural hypothyroidism; E78.5 Hyperlipidemia, unspecified; F17.210 Nicotine dependence, cigarettes, uncomplicated; H35.30 Unspecified macular degeneration; H40.9 Unspecified glaucoma; I13.10 Hypertensive heart and chronic kidney disease without heart failure, with stage 1 through stage 4 chronic kidney disease, or unspecified chronic kidney disease; I65.23 Occlusion and stenosis of bilateral carotid arteries; M06.9 Rheumatoid arthritis, unspecified; Z79.4 Long term (current) use of insulin; Z80.0 Family history of malignant neoplasm of digestive organs; Z82.49 Family history of ischemic heart disease and other diseases of the circulatory system; Z86.73 Personal history of transient ischemic attack (TIA), and cerebral infarction without residual deficits; Z90.710 Acquired absence of both cervix and uterus; Z95.1 Presence of aortocoronary bypass graft; Z96.642 Presence of left artificial hip joint; Z98.41 Cataract extraction status, right eye; Z98.42 Cataract extraction status, left eye
CPT/HCPCS: 36415; 71045; 80048; 80053; 80061; 81001; 82550; 82947; 83605; 83690; 83735; 84443; 84484; 85025; 85027; 87040; 87086; 87186; 93005; 93306; 99406; G0480; J0696; J1815; J7040; P9612; 97110; 97116; 97530; 99285-25; J7030

== ENCOUNTER 2019-12-16 11:27 | Inpatient (IN) | payer MEDICARE, BC ==
[~2019-12-16] VITALS: Ht 162.6 cm; Wt 52.8 kg
[~2019-12-16 11:27] MED LIST: BRIM5DRO2 OP; CRESTOR20 MG PO; INSU100C SQ; INSU100V8 SQ; LEVO125T PO; LOSA25TA11 PO; METO25TA4 PO
[2019-12-16 11:55] LABS: BASO # 0.1 x10^3/uL (0.0-0.2); BASO % 1 % (0-3); EOS # 0.2 x10^3/uL (0.0-0.7); EOS % 1 % (0-3); HEMATOCRIT 42.8 % (36.0-47.0); HEMOGLOBIN 13.8 g/dL (12.0-15.5); LYMPH # 1.7 x10^3/uL (1.0-4.8); LYMPH % 14 % (24-48); MEAN CORPUSCULAR HEMOGLOBIN 31 pg (25-35); MEAN CORPUSCULAR HGB CONC 32 g/dL (31-37); MEAN CORPUSCULAR VOLUME 96 fL (79-100); MONO # 0.8 x10^3/uL (0.0-1.1); MONO % 6 % (0-9); NEUT # 9.4 x10^3uL (1.8-7.7); NEUT % 78 % (31-73); PLATELET COUNT 246 x10^3/uL (140-400); RED BLOOD COUNT 4.45 x10^6/uL (3.50-5.40); RED CELL DISTRIBUTION WIDTH 13.2 % (11.5-14.5); WHITE BLOOD COUNT 12.1 x10^3/uL (4.0-11.0)
[2019-12-16 12:10] LABS: ALBUMIN 3.2 g/dL (3.4-5.0); ALBUMIN/GLOBULIN RATIO 0.9 (1.0-1.7); CALCIUM 8.9 mg/dL (8.5-10.1); GFR 24.9; MAGNESIUM 2.2 mg/dL (1.8-2.4); TOTAL BILIRUBIN 0.3 mg/dL (0.2-1.0); TOTAL PROTEIN 6.7 g/dL (6.4-8.2)
[2019-12-16 12:12] LABS: POTASSIUM 6.1 mmol/L (3.5-5.1)
[2019-12-16] MEDS ORDERED: INSULIN REGULAR 100 UNIT/ML 3ML VIAL. IV ONE (12:30)
[2019-12-16] MEDS ORDERED: SODIUM POLYSTYRENE SULFONATE 15 GM/60 ML ORAL.SUSP. PO ONE (12:30)
[2019-12-16] MEDS ORDERED: IV NORMAL SALINE 1,000ML 1,000 ML IV SCH (12:30)
--- NOTE | 2019-12-16 12:35 | PHYS DOC ---
Past History Past Medical History: Diabetes, High Cholesterol, Hypothyroid, Hypotension, Stroke Past Surgical History: Hip Replacement, Hysterectomy, Tonsillectomy Alcohol Use: None Drug Use: None Adult General Chief Complaint Chief Complaint: MECHANICAL FALL HPI HPI Patient is a 69-year-old female who presents with report of hip pain after falling at home. EMS reports that they had been out on a call earlier today for her but patient did not require transport. Patient is complaining of hip pain at this time and her daughter had convinced her to come into the emergency room to be evaluated. Patient denies any chest pain or shortness breath. She denies any head injury. She had no loss of consciousness. She rates the pain in her left hip at a 5 out of 10. She states the pain is worsened if she tries to bear weight.[] Review of Systems Review of Systems Constitutional: Denies fever or chills [] Respiratory: Denies cough or shortness of breath [] Cardiovascular: No additional information not addressed in HPI [] GI: Denies abdominal pain, nausea, vomiting, bloody stools or diarrhea [] Musculoskeletal: Positive left hip pain [] Integument: Denies rash or skin lesions [] Neurologic: Denies headache, focal weakness or sensory changes [] All other systems were reviewed and found to be within normal limits, except as documented in this note. Current Medications Current Medications Current Medications Medications (Trade) Dose Ordered Sig/Agustin Start Time Stop Time Status Last Admin Dose Admin Insulin Human Regular (HumuLIN R VIAL) 10 unit 1X ONCE 12/16/19 12:30 12/16/19 12:31 DC Sodium Polystyrene Sulfonate (Sps 15 Gm/60 ml Suspension) 15 gm 1X ONCE 12/16/19 12:30 12/16/19 12:31 DC Allergies Allergies Allergies Coded Allergies Type Severity Reaction Last Updated Verified No Known Drug Allergies 08/31/19 No Physical Exam Physical Exam Constitutional: Well developed, well nourished, no acute distress, non-toxic appearance. [] HENT: Normocephalic, atraumatic, bilateral external ears normal, oropharynx moist, no oral exudates, nose normal. [] Eyes: PERRLA, EOMI, conjunctiva normal, no discharge. [] Neck: Normal range of motion, no tenderness, supple, no stridor. [] Cardiovascular: Regular rate and rhythm[] Lungs & Thorax: Bilateral breath sounds clear to auscultation [] Abdomen: Bowel sounds normal, soft, no tenderness. [] Skin: Warm, dry, no erythema, no rash. [] Extremities: Patient does complain of pain in the left hip with hip flexion. There is no shortening or rotation noted on exam. [] Neurologic: Awake and alert, no focal deficits noted. [] Current Patient Data Vital Signs Vital Signs Date Time Temp Pulse Resp B/P (MAP) Pulse Ox O2 Delivery O2 Flow Rate FiO2 12/16/19 11:37 98.1 83 18 169/96 (120) 93 Room Air Lab Results Laboratory Tests Test 12/16/19 11:44 White Blood Count 12.1 x10^3/uL (4.0-11.0) H Red Blood Count 4.45 x10^6/uL (3.50-5.40) Hemoglobin 13.8 g/dL (12.0-15.5) Hematocrit 42.8 % (36.0-47.0) Mean Corpuscular Volume 96 fL (79-100) Mean Corpuscular Hemoglobin 31 pg (25-35) Mean Corpuscular Hemoglobin Concent 32 g/dL (31-37) Red Cell Distribution Width 13.2 % (11.5-14.5) Platelet Count 246 x10^3/uL (140-400) Neutrophils (%) (Auto) 78 % (31-73) H Lymphocytes (%) (Auto) 14 % (24-48) L Monocytes (%) (Auto) 6 % (0-9) Eosinophils (%) (Auto) 1 % (0-3) Basophils (%) (Auto) 1 % (0-3) Neutrophils # (Auto) 9.4 x10^3uL (1.8-7.7) H Lymphocytes # (Auto) 1.7 x10^3/uL (1.0-4.8) Monocytes # (Auto) 0.8 x10^3/uL (0.0-1.1) Eosinophils # (Auto) 0.2 x10^3/uL (0.0-0.7) Basophils # (Auto) 0.1 x10^3/uL (0.0-0.2) Sodium Level 136 mmol/L (136-145) Potassium Level 6.1 mmol/L (3.5-5.1) *H Chloride Level 105 mmol/L (98-107) Carbon Dioxide Level 22 mmol/L (21-32) Anion Gap 9 (6-14) Blood Urea Nitrogen 52 mg/dL (7-20) H Creatinine 2.0 mg/dL (0.6-1.0) H Estimated GFR (Cockcroft-Gault) 24.9 BUN/Creatinine Ratio 26 (6-20) H Glucose Level 302 mg/dL (70-99) H Calcium Level 8.9 mg/dL (8.5-10.1) Magnesium Level 2.2 mg/dL (1.8-2.4) Total Bilirubin 0.3 mg/dL (0.2-1.0) Aspartate Amino Transferase (AST) 29 U/L (15-37) Alanine Aminotransferase (ALT) 49 U/L (14-59) Alkaline Phosphatase 88 U/L (46-116) Total Protein 6.7 g/dL (6.4-8.2) Albumin 3.2 g/dL (3.4-5.0) L Albumin/Globulin Ratio 0.9 (1.0-1.7) L EKG EKG [] Radiology/Procedures Radiology/Procedures [] Course & Med Decision Making Course & Med Decision Making Pertinent Labs and Imaging studies reviewed. (See chart for details) [] Dragon Disclaimer Dragon Disclaimer This electronic medical record was generated, in whole or in part, using a voice recognition dictation system. Departure Departure: Impression: Primary Impression: Ipxds-to-wgnhujq kidney injury Additional Impressions: Hyperkalemia Dehydration Disposition: 09 ADMITTED INPATIENT Admitting Physician: Yvan Robles Condition: IMPROVED Referrals: MARKY CANTOR (PCP) Problem Qualifiers Primary Impression: Sgcsq-[id number] kidney injury Acute renal failure type: unspecified Chronic kidney disease stage: unspecified stage Qualified Codes: N17.9 - Acute kidney failure, unspecified; N18.9 - Chronic kidney disease, unspecified HAO ROBERTSON Jr. DO Dec 16, 2019 12:35
[2019-12-16] MEDS ORDERED: IV NORMAL SALINE 1,000ML 1,000 ML IV ONE ×2 (12:45→16:45)
--- NOTE | 2019-12-16 12:48 | RAD ---
HIP BILATERAL WITH PELVIS History: Fall. Pain. Technique: AP view the pelvis and additional views of the bilateral hips. Comparison: None. Findings: Age-indeterminate left superior pubic ramus fracture. Left total hip arthroplasty. Normal alignment of the hips. Vascular calcifications. Impression: 1. Age-indeterminate left superior pubic ramus fracture. Recommend correlation with point tenderness and prior examinations. CT can further evaluate if clinically indicated. 2. Left hip arthroplasty. Electronically signed by: Chip Enriquez DO (12/16/2019 12:45 PM) [id number]
[2019-12-16 13:40] VITALS: BP 88/56
[2019-12-16] MEDS ORDERED: IV NORMAL SALINE 500ML 500 ML IV ONE (14:45)
[2019-12-16 14:58] LABS: BACTERIA,URINE MANY /HPF (0-FEW); BILIRUBIN,URINE NEG (NEG); CLARITY,URINE CLOUDY; COLOR,URINE YELLOW; GLUCOSE,URINE 500 mg/dL (NEG); NITRITE,URINE POS (NEG); SQUAMOUS EPITHELIAL CELL,UR OCC /LPF; UROBILINOGEN,URINE 0.2 mg/dL (0.2 mg/dL); WBC,URINE 20-40 /HPF (0-4)
[2019-12-16] MEDS ORDERED: NON FORMULARY ITEM (Insulin Lispro (Humalog) 100 UNIT) SQ PRN (15:15)
[2019-12-16] MEDS ORDERED: CLOP75TA57 PO (15:28)
[2019-12-16] MEDS ORDERED: ASPI-630 PO (15:28)
[2019-12-16] MEDS ORDERED: BUPR-192 PO (15:28)
[2019-12-16 15:29] VITALS: BP 77/47
[2019-12-16] MEDS ORDERED: INSU100C SQ (15:30)
[2019-12-16 15:52] VITALS: BP 128/72
[2019-12-16 15:53] LABS: HEMATOCRIT 42.6 % (36.0-47.0); HEMOGLOBIN 13.7 g/dL (12.0-15.5); RED BLOOD COUNT 4.43 x10^6/uL (3.50-5.40); RED CELL DISTRIBUTION WIDTH 13.3 % (11.5-14.5)
[2019-12-16 16:08] LABS: ALBUMIN 3.3 g/dL (3.4-5.0); CALCIUM 8.8 mg/dL (8.5-10.1); CREATININE 1.9 mg/dL (0.6-1.0); GFR 26.4; POTASSIUM 4.4 mmol/L (3.5-5.1); TOTAL BILIRUBIN 0.4 mg/dL (0.2-1.0); TOTAL PROTEIN 6.6 g/dL (6.4-8.2)
[2019-12-16] MEDS ORDERED: ONDANSETRON PF 4 MG/2 ML VIAL. IVP PRN (17:00)
--- NOTE | 2019-12-16 17:20 | HP ---
ADMIT DATE: 12/16/2019 HISTORY OF PRESENT ILLNESS: The patient is a 69-year-old female patient who presented to the Emergency Room with a complaint of mechanical fall. She stated that she was walking with a walker and she tripped and landed on her butt and developed severe pain in her back and also left groin area. She stated that she also has been very unsteady since she started her Wellbutrin as she is attempting to quit smoking to undergo a quadruple bypass surgery and the cardiothoracic surgeon stated that his ____ he quitting smoking. Some of her blood pressure medications were changed by her electrical appliance repairer. She was evaluated in the Emergency Room and her x-ray of the left hip and pelvis showed that she has an age indeterminate left superior pubic ramus fracture, left total hip arthroplasty, normal alignment of the hips, vascular calcification. While in the Emergency Room, she was found also to have acute kidney injury. Her creatinine was 2 and her potassium was high at 6.1 and was treated with sodium polystyrene sulfonate, human insulin as well as a liter of normal saline and was continued on IV fluid. PAST MEDICAL HISTORY: Significant for coronary artery disease, hypertension, cerebrovascular accident, peripheral neuropathy, type 2 diabetes mellitus, hypothyroidism, chronic renal insufficiency, and rheumatoid arthritis. PAST SURGICAL HISTORY: Significant for hysterectomy, tonsillectomy and thyroidectomy. FAMILY HISTORY: Unremarkable. SOCIAL HISTORY: She lives alone. She continued to smoke a pack a day, does not drink alcohol or use any recreational drugs. ALLERGIES: She has no known drug allergies. MEDICATIONS: She is currently on following medications: She is on rosuvastatin calcium 20 mg once a day, metoprolol tartrate 25 mg twice a day, losartan potassium 25 mg once a day, Combigan 1 drop to both eyes daily. She is on Lantus insulin 25 units subcutaneously at bedtime. She is on Humalog insulin as insulin sliding scale. She is on Synthroid 125 mcg once a day. REVIEW OF SYSTEMS: As per history of present illness. PHYSICAL EXAMINATION: GENERAL: On arrival to the Emergency Room, she looked pale, but no jaundice, cyanosis or thyromegaly. No jugular venous distention. No lower limb edema. VITAL SIGNS: Her heart rate was 83, blood pressure was 169/96, temperature was 98.1, respiratory rate was 18 and oxygen saturation was 93%. HEAD, EYES, EARS, NOSE AND THROAT: Showed normocephalic, atraumatic. NECK: Supple. HEART: Showed normal first and second heart sounds with no gallop or murmur. CHEST: Clear to auscultation. No crepitation or rhonchi. ABDOMEN: Scaphoid, soft, nontender. NEUROLOGIC: She is awake, alert, responding appropriately. She normally ambulates with a walker and now the patient is having severe pain with every movement. All her cranial nerves intact. She moves all extremities without difficulty. LABORATORY DATA: Her lab work on arrival to the Emergency Room showed a white cell count 12,100, hemoglobin 13.8, hematocrit 42.8, MCV 96, and platelet count 246,000. Her serum sodium was 136, potassium 6.1, chloride 105, bicarbonate 22, anion gap of 9, BUN 52, creatinine 2, estimated GFR was 25 mL per minute. Her glucose was 302, calcium was 8.9, magnesium 2.2. Total bilirubin, AST, ALT, alkaline phosphatase were normal. Total protein was 6.7, albumin was 3.2. Urinalysis showed the urine was yellow, cloudy with a pH of 5, specific gravity 1.020. There is small amount of protein, large amount of glucose. The urine was negative for ketones. There was moderate amount of blood, positive for nitrite, negative for bilirubin. There was small amount of leukocyte esterase, 1-2 rbc's, 20-40 wbc's, and many bacteria. In summary, this is a 69-year-old female patient with severe coronary artery disease who apparently was started recently on Wellbutrin as a way to quit smoking in preparation for quadruple bypass surgery. She apparently has been feeling very unsteady. This morning, she was walking in her kitchen with a walker and tripped and fell and landed on her butt, developed severe pain in her left groin and both gluteal areas. Her x-ray in the Emergency Room showed that she has left superior pubic ramus fracture. She was found also to have hyperkalemia and impaired kidney function. She has acute on chronic kidney injury. She was treated with sodium polystyrene sulfonate as well as insulin and glucose. My plan is to obviously discontinue the losartan for the time being. We did start her on IV fluid and I will arrange for her to have a CT scan of the pelvis and both hip joints and we will decide further management accordingly. CAL CONTRERAS MD DR: LORI/nati JOB#: [id number] / [id number]
--- NOTE | 2019-12-16 17:22 | RAD ---
CT PELVIS WO CONTRAST, CT LUMBAR SPINE WO CONTRAST Indication: Patient fell, back pain. Exposure: One or more of the following individualized dose reduction techniques were utilized for this examination: 1. Automated exposure control 2. Adjustment of the mA and/or kV according to patient size 3. Use of iterative reconstruction technique. Technique: Standard imaging without intravenous contrast. Skeletal pelvis: Acute appearing fracture of the right sacral ala. Minimal cortical offset but no gross displacement. Mildly comminuted fracture of the left pubic bone and left superior and inferior pubic rami with mild displacement. Fracture may also involve the root of the superior pubic ramus, without displacement or, although area is distorted by artifact from left hip replacement. The sacroiliac joints are intact. There is a left hip replacement. No evidence of dislocation. Mild degenerative changes of the right hip. Study was not protocoled for soft tissue evaluation. There appear to be multiple small dependent gallstones in the partially visualized gallbladder. Tiny calcifications at the right kidney on the uppermost slice, may represent renal calculi. No gross bowel distention. There is some density within the left upper abdomen, presumably gastric content. The urinary bladder is catheterized. Densely atherosclerotic calcifications of the aorta. Lumbar spine: Vertebral body height is intact. Multilevel degenerative spondylosis with disc bulging. Moderate spinal and neural foraminal stenosis and neural foraminal/lateral recess stenosis, greatest at L3-L4 and L4-L5. No additional acute fractures are identified. The aorta is densely calcified without aneurysm. Dense vascular calcifications at the kidneys. There is some renal cortical calcification on the right appears to surround the lesion, measuring about 2 cm. IMPRESSION: 1. Nondisplaced fracture of the right sacral ala. 2. Mildly displaced fractures of the left pubic bone and superior and inferior left pubic rami. Fracture also possibly involves the root of the left superior pubic ramus without displacement. 3. Cholelithiasis. 4. Dense calcifications in the right lateral kidney, appear to be around the margins of the lesion, measuring about 2 cm. This may represent a calcified renal mass, or an old insult such as infarct or trauma. Multiphase CT of the kidneys or MRI kidney could further evaluate. Electronically signed by: Mian Hines MD (12/16/2019 5:19 PM) [facility]
--- NOTE | 2019-12-16 17:30 | EKG ---
[address] [address] Test Date: 2019-12-16 Test Time: 12:27:50 Pat Name: SIOBHAN SPANN Department: Room: Gender: F Bag Inspector: : 1950 Requested By: HAO ROBERTSON Order Number: [id number] Reading MD: Measurements Intervals [place] Rate: 79 P: 56 MD: 144 QRS: 18 QRSD: 106 T: 82 QT: 400 QTc: 460 Interpretive Statements SINUS RHYTHM VENTRICULAR PREMATURE COMPLEX(ES) ST & T ABNORMALITY, CONSIDER HIGH LATERAL ISCHEMIA OR LEFT VENTRICULAR STRAIN ABNORMAL ECG RI6.01 No previous ECG available for comparison
[2019-12-16 18:35] VITALS: BP 121/73
[2019-12-16 19:59] VITALS: BP 112/67
[2019-12-16] MEDS ORDERED: INSU100I11 SQ (20:54)
[2019-12-16] MEDS ORDERED: DEXTROSE 50% 25 GM / 50ML DISP.SYRIN. IV PRN (21:00)
[2019-12-16] MEDS: ATORVASTATIN CALCIUM 20 MG TABLET PO SCH (21:21)
[2019-12-16] MEDS: METOPROLOL TART IMMED RELEASE 25 MG TABLET PO SCH (21:22)
[2019-12-16] MEDS: INSULIN GLARGINE SYRINGE. SQ SCH (21:23)
[2019-12-16] MEDS: INSULIN LISPRO 300 UNITS/3 ML VIAL. SQ SCH (21:24)
[2019-12-16 22:43] VITALS: BP 98/69
[2019-12-17 06:16] VITALS: BP 96/60
[2019-12-17] MEDS: LEVOTHYROXINE 125 MCG TABLET PO SCH (06:23)
[2019-12-17 07:05] LABS: BASO % 0 % (0-3); EOS # 0.1 x10^3/uL (0.0-0.7); EOS % 1 % (0-3); HEMATOCRIT 35.5 % (36.0-47.0); HEMOGLOBIN 11.6 g/dL (12.0-15.5); LYMPH # 1.7 x10^3/uL (1.0-4.8); LYMPH % 17 % (24-48); MEAN CORPUSCULAR HEMOGLOBIN 31 pg (25-35); MEAN CORPUSCULAR HGB CONC 33 g/dL (31-37); MEAN CORPUSCULAR VOLUME 96 fL (79-100); MONO # 1.2 x10^3/uL (0.0-1.1); MONO % 11 % (0-9); NEUT # 7.3 x10^3uL (1.8-7.7); NEUT % 70 % (31-73); PLATELET COUNT 218 x10^3/uL (140-400); RED BLOOD COUNT 3.71 x10^6/uL (3.50-5.40); RED CELL DISTRIBUTION WIDTH 13.2 % (11.5-14.5); WHITE BLOOD COUNT 10.3 x10^3/uL (4.0-11.0)
[2019-12-17 07:17] LABS: CALCIUM 7.7 mg/dL (8.5-10.1); GFR 24.9; POTASSIUM 4.3 mmol/L (3.5-5.1)
[2019-12-17] MEDS: BRIMONIDINE 0.2% OPHTH SOLUTION 5ML BOTTLE. OU SCH (08:05)
[2019-12-17] MEDS: TIMOLOL 0.5% OPHTH SOLUTION 5ML BOTTLE. OU SCH (08:06)
[2019-12-17] MEDS: INSULIN LISPRO 300 UNITS/3 ML VIAL. SQ SCH ×3 (08:11→17:25)
[2019-12-17] MEDS: METOPROLOL TART IMMED RELEASE 25 MG TABLET PO SCH ×2 (08:12→21:28)
[2019-12-17 10:46] VITALS: BP 87/53
[2019-12-17 14:37] VITALS: BP 118/62
[2019-12-17 19:28] VITALS: BP 131/72
[2019-12-17] MEDS: INSULIN GLARGINE SYRINGE. SQ SCH (21:00)
[2019-12-17] MEDS: ATORVASTATIN CALCIUM 20 MG TABLET PO SCH (21:27)
[2019-12-17 22:13] VITALS: BP 130/82
--- NOTE | 2019-12-17 22:26 | PN ---
DATE: 12/17/2019 SUBJECTIVE: The patient is resting, slightly propped up in bed, in no apparent distress. She continued to complain of pain on movement and changing her position. Her CT scan of the pelvis showed that she has an undisplaced fracture of the right sacral ala and mild displaced fracture of the left pubic bone and superior and inferior left pubic rami fracture, also possibly involving the root of the left superior pubic ramus without displacement. I spoke with Dr. Garvey, the interventional radiologist, who stated that the patient is a candidate for sacroplasty and the plan is for her to be transferred tomorrow to [facility] for the procedure to be done on Sunday. PHYSICAL EXAMINATION: GENERAL: When I saw her this afternoon, she looked well and was clearly in no apparent distress, pale, no jaundice, cyanosis or thyromegaly. No jugular venous distention. No limb edema. VITAL SIGNS: Her heart rate was 79, blood pressure was 118/62, temperature was 98.2, respiratory rate was 18 and oxygen saturation was 91% on room air. HEAD, EYES, EARS, NOSE AND THROAT: Showed normocephalic, atraumatic. NECK: Supple. HEART: Showed normal first and second heart sounds. No gallop or murmur. CHEST: Clear to auscultation. No crepitation or rhonchi. ABDOMEN: Distended, soft, nontender. NEUROLOGIC: She is awake, alert, and responding appropriately. All cranial nerves are intact. She moves extremities without difficulty. However, she is mostly bedbound given severity of her pain. Her intake over the last 24 hours was 2250, output was 600. LABORATORY DATA: Showed a white cell count of 10,000, hemoglobin 11.6, hematocrit 35.5, MCV 96, and platelet count 218,000. Her chemistry showed a serum sodium 140, potassium 4.3, chloride 108, bicarbonate 23, anion gap of 9, BUN 51, creatinine 2, estimated GFR was 24 mL per minute. Her glucose 166, calcium was 7.7. ASSESSMENT: 1. This is a 69-year-old female patient, who with severe coronary artery disease, who apparently was started recently on Wellbutrin as a way to quit smoking in preparation for quadruple bypass surgery. 2. She apparently has been feeling very unsteady and yesterday morning, she was walking in her kitchen with a walker and tripped and fell, landed on her butt and developed severe pain in her left groin and both gluteal areas. 3. Her x-ray in the Emergency Room showed that she has left superior pubic ramus fracture. 4. She was found to have hyperkalemia and impaired kidney function was diagnosed with [id number] kidney injury. She was treated with sodium polystyrene sulfonate as well as insulin glucose. Her hyperkalemia, resolved. Her potassium this morning was 4.3. Her BUN and creatinine have been stable. The CT scan of the pelvis showed that she has stable nondisplaced fracture of the right ala. Other medical problems include cerebrovascular accident, hypertension, peripheral neuropathy, type 2 diabetes mellitus, hypothyroidism, chronic renal insufficiency, and rheumatoid arthritis. PLAN: My plan is to continue with her current plan of management. She is on insulin, atorvastatin, metoprolol, and fentanyl citrate. She is also on ceftriaxone as she has also urinary tract infection and I have spoken with Dr. Garvey and the plan is for her to be transferred tomorrow to [facility] for kyphoplasty on Sunday. CAL CONTRERAS MD DR: LORI/nati JOB#: [id number] / [id number]
[2019-12-18 05:16] VITALS: BP 147/70
[2019-12-18 07:01] LABS: HEMATOCRIT 36.5 % (36.0-47.0); RED BLOOD COUNT 3.82 x10^6/uL (3.50-5.40); RED CELL DISTRIBUTION WIDTH 13.2 % (11.5-14.5); WHITE BLOOD COUNT 10.9 x10^3/uL (4.0-11.0)
[2019-12-18 07:21] LABS: ALBUMIN 2.5 g/dL (3.4-5.0); ALBUMIN/GLOBULIN RATIO 0.8 (1.0-1.7); CALCIUM 7.9 mg/dL (8.5-10.1); CREATININE 1.7 mg/dL (0.6-1.0); POTASSIUM 4.3 mmol/L (3.5-5.1); TOTAL BILIRUBIN 0.4 mg/dL (0.2-1.0); TOTAL PROTEIN 5.6 g/dL (6.4-8.2)
[2019-12-18] MEDS: TIMOLOL 0.5% OPHTH SOLUTION 5ML BOTTLE. OU SCH (08:53)
[2019-12-18] MEDS: BRIMONIDINE 0.2% OPHTH SOLUTION 5ML BOTTLE. OU SCH (08:53)
[2019-12-18] MEDS: METOPROLOL TART IMMED RELEASE 25 MG TABLET PO SCH (08:53)
[2019-12-18] MEDS: LEVOTHYROXINE 125 MCG TABLET PO SCH (08:53)
[2019-12-18] MEDS: INSULIN LISPRO 300 UNITS/3 ML VIAL. SQ SCH ×3 (08:56→17:25)
[2019-12-18 11:45] VITALS: BP 157/72
[2019-12-18 14:55] VITALS: BP 135/67
[2019-12-18 19:06] VITALS: BP 123/63
[2019-12-18] MEDS ORDERED: LACTOBACILLUS RHAMNOSUS GG 1 CAPSULE. PO SCH (21:00)
== END 2019-12-18 19:51 | disposition short-term general hospital (02) | DRG 552 ==
LOC: ER 11:27 → 1 SOUTH 12:30
PROVIDERS: ADMIT Internal Medicine; ATTEND Internal Medicine
DX: S32.119A Unspecified Zone I fracture of sacrum, initial encounter for closed fracture (principal); S32.592A Other specified fracture of left pubis, initial encounter for closed fracture; N17.9 Acute kidney failure, unspecified; N39.0 Urinary tract infection, site not specified; R65.10 Systemic inflammatory response syndrome (SIRS) of non-infectious origin without acute organ dysfunction; E11.22 Type 2 diabetes mellitus with diabetic chronic kidney disease; E78.00 Pure hypercholesterolemia, unspecified; E86.0 Dehydration; E87.5 Hyperkalemia; E89.0 Postprocedural hypothyroidism; F17.210 Nicotine dependence, cigarettes, uncomplicated; I12.9 Hypertensive chronic kidney disease with stage 1 through stage 4 chronic kidney disease, or unspecified chronic kidney disease; I25.10 Atherosclerotic heart disease of native coronary artery without angina pectoris; M06.9 Rheumatoid arthritis, unspecified; N18.9 Chronic kidney disease, unspecified; W01.0XXA Fall on same level from slipping, tripping and stumbling without subsequent striking against object, initial encounter; Y92.000 Kitchen of unspecified non-institutional (private) residence as the place of occurrence of the external cause; Y93.01 Activity, walking, marching and hiking; Z86.73 Personal history of transient ischemic attack (TIA), and cerebral infarction without residual deficits; Z90.710 Acquired absence of both cervix and uterus; Z96.642 Presence of left artificial hip joint; E11.42 Type 2 diabetes mellitus with diabetic polyneuropathy; Z79.4 Long term (current) use of insulin
CPT/HCPCS: 36415; 72131; 72192; 73521; 80048; 80053; 81001; 82947; 83735; 85025; 85027; 87086; 87186; 93005; 96374; J0696; J1815; J3010; J7040; 99285-25; J7030

== ENCOUNTER 2019-12-25 17:30 | Inpatient (IN) | payer MEDICARE, BC ==
[~2019-12-25] VITALS: Ht 162.6 cm; Wt 57.0 kg
[~2019-12-25 17:30] MED LIST changes: +ASPI-630 PO; +BUPR-192 PO; +CLOP75TA57 PO; +INSU100I11 SQ
[2019-12-25 18:15] LABS: BASO # 0.1 x10^3/uL (0.0-0.2); BASO % 1 % (0-3); EOS # 0.2 x10^3/uL (0.0-0.7); EOS % 2 % (0-3); HEMATOCRIT 37.7 % (36.0-47.0); HEMOGLOBIN 12.1 g/dL (12.0-15.5); LYMPH # 1.4 x10^3/uL (1.0-4.8); LYMPH % 14 % (24-48); MEAN CORPUSCULAR HEMOGLOBIN 31 pg (25-35); MEAN CORPUSCULAR HGB CONC 32 g/dL (31-37); MEAN CORPUSCULAR VOLUME 97 fL (79-100); MONO # 1.1 x10^3/uL (0.0-1.1); MONO % 10 % (0-9); NEUT # 7.5 x10^3uL (1.8-7.7); NEUT % 73 % (31-73); PLATELET COUNT 313 x10^3/uL (140-400); RED BLOOD COUNT 3.89 x10^6/uL (3.50-5.40); RED CELL DISTRIBUTION WIDTH 13.7 % (11.5-14.5); WHITE BLOOD COUNT 10.3 x10^3/uL (4.0-11.0)
[2019-12-25 18:23] LABS: CALCIUM 8.4 mg/dL (8.5-10.1); CREATININE 1.5 mg/dL (0.6-1.0); GFR 34.6; POTASSIUM 4.8 mmol/L (3.5-5.1)
[2019-12-25 18:29] LABS: ALBUMIN 2.5 g/dL (3.4-5.0); ALBUMIN/GLOBULIN RATIO 0.8 (1.0-1.7); MAGNESIUM 2.3 mg/dL (1.8-2.4); TOTAL BILIRUBIN 0.4 mg/dL (0.2-1.0); TOTAL PROTEIN 5.8 g/dL (6.4-8.2)
[2019-12-25] MEDS ORDERED: IV NORMAL SALINE 1,000ML 1,000 ML IV ONE (18:45)
--- NOTE | 2019-12-25 19:54 | PHYS DOC ---
Past History Past Medical History: Diabetes, High Cholesterol, Hypothyroid, Hypotension, Stroke, UTI, Other Additional Past Medical Histor: pelvic fx Past Surgical History: Hip Replacement, Hysterectomy, Tonsillectomy Alcohol Use: None Drug Use: None Adult General Chief Complaint Chief Complaint: HYPOGLYCEMIA HPI HPI Patient is a 69-year-old female who was brought here from a halfway due to altered mental status. Patient was recently had her pelvis operated on, she is at the halfway for rehab. After her operation she was not able to urinate, so she has been having an indwelling Leach catheter in place, she cannot have an infection, patient will receive 2 doses of Rocephin. They try to remove the Leach catheter today, after work she was not able to urinate, so the Leach catheter was placed again. At noon today her blood sugar was 112, somehow the nurse gave her 12 units of regular insulin SQ. afterwards she become confused so they checked her blood sugar and it was 63. EMS was then called to take her here for evaluation. They started an IV and gave her a bag of D10 on route here. Patient denies any abdominal pain. Her family said patient feeling weak she does not eat much. She localizes sleep most of the time. Denies any injury. Patient denies any chest pain, no trouble breathing. Review of Systems Review of Systems Constitutional: Denies fever or chills [] Eyes: Denies change in visual acuity, redness, or eye pain [] HENT: Denies nasal congestion or sore throat [] Respiratory: Denies cough or shortness of breath [] Cardiovascular: No additional information not addressed in HPI [] GI: Denies abdominal pain, nausea, vomiting, bloody stools or diarrhea [] : Denies dysuria or hematuria [] Musculoskeletal: Denies back pain or joint pain [] Integument: Denies rash or skin lesions [] Neurologic: Denies headache, focal weakness or sensory changes. POSITIVE FOR GENERALIZED WEAKNESS AND CONFUSION Endocrine: Denies polyuria or polydipsia [] All other systems were reviewed and found to be within normal limits, except as documented in this note. Current Medications Current Medications Current Medications Medications (Trade) Dose Ordered Sig/Agustin Start Time Stop Time Status Last Admin Dose Admin Sodium Chloride 1,000 ml @ 1,000 mls/hr 1X ONCE 12/25/19 18:45 12/25/19 19:44 DC 12/25/19 19:20 1,000 MLS/HR Allergies Allergies Allergies Coded Allergies Type Severity Reaction Last Updated Verified No Known Drug Allergies 08/31/19 No Physical Exam Physical Exam Constitutional: Well developed, well nourished, APPEARED SOMNOLENT, WEAK. HENT: Normocephalic, atraumatic, bilateral external ears normal, oropharynx moist, no oral exudates, nose normal. [] Eyes: PERRLA, EOMI, conjunctiva normal, no discharge. [] Neck: Normal range of motion, no tenderness, supple, no stridor. [] Cardiovascular:Heart rate regular rhythm, no murmur [] Lungs & Thorax: Bilateral breath sounds clear to auscultation [] Abdomen: Bowel sounds normal, soft, no tenderness, no masses, no pulsatile masses. IN DWELLING LEACH CATHETER IN PLACE. Skin: Warm, dry, no erythema, no rash. [] Back: No tenderness, no CVA tenderness. [] Extremities: No tenderness, no cyanosis, no clubbing, ROM intact, no edema. [] Neurologic: Patient was somnolent but able to wake up and answered questions appropriately, she moved all of her extremities, her speech was slow but clear. Psychologic: Affect normal, judgement normal, mood normal. [] Current Patient Data Vital Signs Vital Signs Date Time Temp Pulse Resp B/P (MAP) Pulse Ox O2 Delivery O2 Flow Rate FiO2 12/25/19 18:29 66 19 143/48 (79) 99 Room Air 12/25/19 17:30 97.5 Lab Results Laboratory Tests Test 12/25/19 18:00 White Blood Count 10.3 x10^3/uL (4.0-11.0) Red Blood Count 3.89 x10^6/uL (3.50-5.40) Hemoglobin 12.1 g/dL (12.0-15.5) Hematocrit 37.7 % (36.0-47.0) Mean Corpuscular Volume 97 fL (79-100) Mean Corpuscular Hemoglobin 31 pg (25-35) Mean Corpuscular Hemoglobin Concent 32 g/dL (31-37) Red Cell Distribution Width 13.7 % (11.5-14.5) Platelet Count 313 x10^3/uL (140-400) Neutrophils (%) (Auto) 73 % (31-73) Lymphocytes (%) (Auto) 14 % (24-48) L Monocytes (%) (Auto) 10 % (0-9) H Eosinophils (%) (Auto) 2 % (0-3) Basophils (%) (Auto) 1 % (0-3) Neutrophils # (Auto) 7.5 x10^3uL (1.8-7.7) Lymphocytes # (Auto) 1.4 x10^3/uL (1.0-4.8) Monocytes # (Auto) 1.1 x10^3/uL (0.0-1.1) Eosinophils # (Auto) 0.2 x10^3/uL (0.0-0.7) Basophils # (Auto) 0.1 x10^3/uL (0.0-0.2) Prothrombin Time 9.3 SEC (9.4-11.4) L Prothrombin Time INR 0.9 (0.9-1.1) Activated Partial Thromboplast Time 23 SEC (23-33) Sodium Level 142 mmol/L (136-145) Potassium Level 4.8 mmol/L (3.5-5.1) Chloride Level 108 mmol/L (98-107) H Carbon Dioxide Level 25 mmol/L (21-32) Anion Gap 9 (6-14) Blood Urea Nitrogen 44 mg/dL (7-20) H Creatinine 1.5 mg/dL (0.6-1.0) H Estimated GFR (Cockcroft-Gault) 34.6 BUN/Creatinine Ratio 29 (6-20) H Glucose Level 108 mg/dL (70-99) H Calcium Level 8.4 mg/dL (8.5-10.1) L Magnesium Level 2.3 mg/dL (1.8-2.4) Total Bilirubin 0.4 mg/dL (0.2-1.0) Aspartate Amino Transferase (AST) 110 U/L (15-37) H Alanine Aminotransferase (ALT) 117 U/L (14-59) H Alkaline Phosphatase 148 U/L (46-116) H Total Protein 5.8 g/dL (6.4-8.2) L Albumin 2.5 g/dL (3.4-5.0) L Albumin/Globulin Ratio 0.8 (1.0-1.7) L Lipase 72 U/L (73-393) L EKG EKG EKG was done at 1947, rate of 63 bpm, sinus rhythm, prolong QTC (495) Radiology/Procedures Radiology/Procedures [] Course & Med Decision Making Course & Med Decision Making Pertinent Labs and Imaging studies reviewed. (See chart for details) Patient is a 69-year-old female who was evaluated in ER due to hypoglycemia after insulin injection. Patient has not been eating well, she is dehydrated. Her liver function tests elevated as well. EKG shows a prolonged QTC interval, patient will be admitted to hospital for observation. Dragon Disclaimer Dragon Disclaimer This electronic medical record was generated, in whole or in part, using a voice recognition dictation system. Departure Departure: Impression: Primary Impression: Hypoglycemia Additional Impression: Liver function abnormality Disposition: ADMITTED INPATIENT Admitting Physician: Yvan Robles Condition: STABLE Referrals: MARKY CANTOR (PCP) Problem Qualifiers WASHINGTON SCHNEIDER DO Dec 25, 2019 19:54
[2019-12-25] MEDS ORDERED: ONDANSETRON PF 4 MG/2 ML VIAL. IV PRN (20:15)
--- NOTE | 2019-12-25 20:33 | RAD ---
CHEST AP ONLY Clinical History: Dyspnea Technique: AP view of the chest was obtained at 12/25/2019 7:41 PM. Comparison: August 31, 2019. Findings: The cardiomediastinal silhouette is normal. The pulmonary vasculature is normal. Reticular opacities of the lungs is likely chronic pulmonary fibrosis. Impression: No evidence of an acute cardiopulmonary process. Electronically signed by: Av Leahy III, MD (12/25/2019 8:30 PM) [id number]
--- NOTE | 2019-12-25 21:59 | RAD ---
Exam: Ultrasound abdomen limited Indication: Confusion, elevated LFTs Technique: Real-time grayscale and color Doppler images of the right upper quadrant were obtained by the department handbag framer. Comparisons: None FINDINGS: Liver demonstrates homogenous echotexture. Mild intrahepatic biliary ductal dilatation is noted. Gallbladder is distended with layering sludge and stones noted. Common bile duct is dilated measuring up to 1 cm in diameter. Right kidney measures 10.1 cm in length. No hydronephrosis. Echogenic focus of the upper pole of the right kidney may represent partially calcified cystic lesion. Visual is portions aorta and IVC are unremarkable. IMPRESSION: 1. Common bile duct dilatation and mild intrahepatic biliary ductal dilatation. Findings may relate to a downstream obstructing lesion. 2. Gallbladder is distended with layering sludge and stones noted. 3. Right kidney has a partially calcified incompletely evaluated upper pole lesion. Further evaluation with nonemergent renal protocol CT or MRI is recommended. Electronically signed by: Austen Zelaya MD (12/25/2019 9:56 PM) [id number]
--- NOTE | 2019-12-25 22:00 | NUR ---
Pt admitted from ER to [address] [place] [address] room 113, via [facility] accompanied by EMS and nursing staff. Pt transferred from [facility] to bed x3 assist. Pt admitted from ED with a diagnosis of hypoglycemia, CKD, elevated LE and recent pelvic fx. Pt is A&O x4, speech is clear, able to make wants/needs known. Health history and home medications reviewed with pt, list for facility faxed over. Pt last month fell at home, resulting in a pelvic fx and hip pain. Pt lives home alone but has been at [facility] for a few days now for PT/OT. Pt had a 18F Sanchez placed earlier today at [facility] for urine retention, clear straw colored urine draining. Pt is UTD on flu vaccine. Put is using a Nicotine patch for smoking cessation. PT/OT and CM consulted. Valuables were checked and left with patient at bed side. Call light within reach. Box lunch given per request. POC blood sugar taken with result of 232.
[2019-12-25 22:30] VITALS: BP 177/74
[2019-12-25 23:30] LABS: COLOR,URINE YELLOW
[2019-12-25 23:31] LABS: BACTERIA,URINE 0 /HPF (0-FEW); BILIRUBIN,URINE NEG (NEG); CLARITY,URINE CLEAR; GLUCOSE,URINE 500 mg/dL (NEG); NITRITE,URINE NEG (NEG); SQUAMOUS EPITHELIAL CELL,UR FEW /LPF
[2019-12-25 23:32] LABS: HYALINE CASTS, URINE OCC /HPF
--- NOTE | 2019-12-25 23:51 | EKG ---
[address] [address] Test Date: 2019-12-25 Test Time: 19:47:17 Pat Name: SIOBHAN SPANN Department: Room: Gender: F Filteration Operator: : 1950 Requested By: WASHINGTON SCHNEIDER Order Number: [id number] Reading MD: Measurements Intervals [place] Rate: 63 P: 36 NE: 162 QRS: 7 QRSD: 100 T: 71 QT: 480 QTc: 495 Interpretive Statements SINUS RHYTHM T ABNORMALITY IN HIGH LATERAL LEADS PROLONGED QT ABNORMAL ECG RI6.01 No previous ECG available for comparison
[2019-12-26] MEDS ORDERED: NICO1PAT21 TD (00:47)
[2019-12-26] MEDS ORDERED: ASPI325T8 PO (00:47)
[2019-12-26] MEDS ORDERED: ATORVASTATIN CA80 MG PO (00:47)
[2019-12-26] MEDS ORDERED: LACT100C2 PO (00:47)
[2019-12-26] MEDS ORDERED: CHOL200078 PO (00:47)
[2019-12-26] MEDS ORDERED: TRAM50TA PO (00:47)
[2019-12-26] MEDS: LEVOTHYROXINE 125 MCG TABLET PO SCH (05:30)
[2019-12-26 05:33] VITALS: BP 168/75
[2019-12-26] MEDS: CHOLECALCIFEROL (VITAMIN D3) 1,000 UNIT TABLET PO SCH ×2 (07:50→21:43)
[2019-12-26] MEDS: traMADol 50 MG TABLET PO SCH ×3 (07:50→21:43)
[2019-12-26] MEDS: METOPROLOL TART IMMED RELEASE 25 MG TABLET PO SCH ×2 (07:50→21:43)
[2019-12-26] MEDS: LACTOBACILLUS RHAMNOSUS GG 1 CAPSULE. PO SCH ×2 (07:50→21:43)
[2019-12-26] MEDS: ASPIRIN 325 MG TABLET PO SCH (07:50)
[2019-12-26] MEDS: LOSARTAN 25 MG TABLET. PO SCH (07:51)
[2019-12-26] MEDS: NICOTINE 21MG PATCH. TD SCH (07:51)
[2019-12-26] MEDS: INSULIN LISPRO 300 UNITS/3 ML VIAL. SQ SCH ×3 (07:57→16:30)
[2019-12-26 10:42] VITALS: BP 93/55
[2019-12-26 11:46] LABS: CALCIUM 7.9 mg/dL (8.5-10.1); CREATININE 1.5 mg/dL (0.6-1.0); GFR 34.6; POTASSIUM 4.8 mmol/L (3.5-5.1)
[2019-12-26 11:52] LABS: ALBUMIN 2.2 g/dL (3.4-5.0); ALBUMIN/GLOBULIN RATIO 0.7 (1.0-1.7); TOTAL BILIRUBIN 0.3 mg/dL (0.2-1.0); TOTAL PROTEIN 5.5 g/dL (6.4-8.2)
--- NOTE | 2019-12-26 11:52 | NUR ---
Patient is alert and oriented x 4, speech is clear, able to make wants and needs known and able to verbalize understanding of others. Patient is a x 1-2 assist with gait belt and walker. Patient c/o pain in right groin and sacrum area, scheduled Tramadol administered per order at 0800, effective results post administration .Patient blood sugar level this shift has been 349, insulin administered per order. New order for NM Hida scan ordered per doctor. Patient is to remain NPO until after procedure at 1400. Patient verbally notified of new orders and verified understanding.
--- NOTE | 2019-12-26 12:17 | HP ---
ADMIT DATE: 12/25/2019 HISTORY OF PRESENT ILLNESS: The patient is a 69-year-old female patient who was residing at [facility] and she went into hypoglycemia. I was actually there and we did manage to put an IV line and the ambulance was summoned immediately and she was started on D10 and was transferred to [facility] Emergency Room for further evaluation and treatment. She was seen and was evaluated. Apparently, she has received about 12 units of regular insulin with lunch and afterward she became confused and her blood sugar was down to 63 mg/dL. The patient was awake when she arrived, but denied any chest pain or any other complaint. In fact, by the time she arrived here, her blood sugar was 108 mg/dL. However, surprisingly her liver enzymes have dramatically risen. Her AST and ALT are all elevated, although her total bilirubin was normal at 0.4 and the patient was admitted for further evaluation and treatment. She was continued on her Lantus insulin 25 units at bedtime; however, apparently her appetite is poor and she has not been eating very well according to her family and therefore, we will discontinue the scheduled Humalog insulin. PAST MEDICAL HISTORY: Significant for coronary artery disease, hypertension, cerebrovascular accident, peripheral neuropathy, type 2 diabetes mellitus, hypothyroidism, chronic renal insufficiency and rheumatoid arthritis. PAST SURGICAL HISTORY: Significant for hysterectomy, tonsillectomy and thyroidectomy. Did have also left heart catheterization, showed she has quadruple vessel coronary artery disease. She is actually scheduled for coronary artery bypass surgery; however, it is condition about her quitting her smoking. FAMILY HISTORY: Unremarkable. SOCIAL HISTORY: She lives alone. She continued to smoke a pack a day, does not drink alcohol or use any recreational drugs. ALLERGIES: She has no known drug allergies. MEDICATIONS: She is currently on following medications: She is on Nicoderm patch 21 mg transdermal daily, atorvastatin calcium 80 mg at bedtime, Crestor 20 mg at bedtime, metoprolol tartrate 25 mg twice a day, losartan potassium 25 mg once a day, aspirin 325 mg daily, tramadol 100 mg 3 times a day, lactobacillus acidophilus 1 capsule twice a day. She is also on Lantus insulin 25 units at bedtime and Humalog insulin 12 units subcutaneous 3 times a day before meals and levothyroxine for Synthroid 125 mcg daily, cholecalciferol vitamin D 2000 international units twice a day. PHYSICAL EXAMINATION: GENERAL: On arrival to the Emergency Room, she looked well and was clearly in no apparent respiratory distress, pale, somewhat cachectic, but no jaundice, cyanosis or thyromegaly. No jugular venous distention. No lower limb edema. VITAL SIGNS: Her heart rate was 69, blood pressure was 123/63, temperature was 98.1, respiratory rate was 20 and oxygen saturation was 94% on room air. HEAD, EYES, EARS, NOSE AND THROAT: Showed normocephalic, atraumatic. NECK: Supple. HEART: Showed normal first and second heart sounds. No gallop or murmur. CHEST: Clear to auscultation. No crepitation or rhonchi. ABDOMEN: Distended, soft, nontender. No guarding or rigidity. No organomegaly. All hernial orifices intact. Bowel sounds normal. NEUROLOGIC: She was apparently more awake by the time she arrived here. She received almost a bag of D10. LABORATORY DATA: Her lab work in the Emergency Room showed that she was mildly dehydrated. She had other liver enzymes were elevated. Her EKG showed she has a prolonged QTC interval. ASSESSMENT AND PLAN: The patient was admitted for observation and arrangement was made for her to have abdominal ultrasound. The patient was admitted after an episode of hypoglycemia. She was found to have abnormal liver enzymes. Her QTC interval was prolonged. She has obviously multiple other medical problems including type 2 diabetes mellitus, coronary artery disease, hypothyroidism, peripheral neuropathy and chronic kidney insufficiency. CAL CONTRERAS MD DR: LORI/nati JOB#: [id number] / [id number]
[2019-12-26] MEDS ORDERED: SINCALIDE 1.14 MCG in IV NORMAL SALINE 50ML 30 ML IV ONE (13:30)
[2019-12-26 15:17] VITALS: BP 168/75
--- NOTE | 2019-12-26 15:26 | RAD ---
HEPATOBILIARY SCAN WITH EJECTION FRACTION 12/26/2019 3:13 PM History: Abdominal pain x1 week Procedure: Serial static images are obtained of the liver and biliary system in the frontal projection following IV administration of 5.5 mCi of Technetium 99m Choletec. After filling of the gallbladder, 1.1 mcg of sincalide were infused over 30 minutes and dynamic imaging continued over this period. The gallbladder ejection fraction was calculated. Findings: There is prompt hepatic clearance of tracer from the blood pool. There is homogeneous distribution throughout the liver. The gallbladder ejection fraction measures 87 % (normal gallbladder EF is 35% or greater). IMPRESSION: 1. The cystic duct and common bile duct are patent. Negative for acute cholecystitis. 2. The gallbladder ejection fraction is within normal limits Electronically signed by: Nolan Arita MD (12/26/2019 3:23 PM) [id number]
[2019-12-26 19:25] VITALS: BP 121/64
--- NOTE | 2019-12-26 19:36 | NUR ---
Notified Dr. Robles of test results from today, including blood sugar and insulin administration. Orders given and implemented to reduce insulin and to monitor finger stick glucose every 2 hours through the night. Will continue to monitor.
[2019-12-26] MEDS ORDERED: DEXTROSE 50% 25 GM / 50ML DISP.SYRIN. IV PRN (19:45)
[2019-12-26] MEDS ORDERED: INSULIN GLARGINE SYRINGE. SQ SCH ×2 (21:00)
[2019-12-26] MEDS ORDERED: ATORVASTATIN CALCIUM 20 MG TABLET PO SCH (21:00)
[2019-12-26] MEDS ORDERED: NON FORMULARY ITEM (Rosuvastatin Calcium (Crestor) 20 MG) PO SCH (21:00)
[2019-12-26 23:14] VITALS: BP 156/77
[2019-12-27 05:21] VITALS: BP 157/71
[2019-12-27] MEDS: LEVOTHYROXINE 125 MCG TABLET PO SCH (06:00)
[2019-12-27] MEDS ORDERED: INSULIN LISPRO 300 UNITS/3 ML VIAL. SQ SCH (08:00)
[2019-12-27] MEDS: LACTOBACILLUS RHAMNOSUS GG 1 CAPSULE. PO SCH (08:08)
[2019-12-27] MEDS: traMADol 50 MG TABLET PO SCH (08:08)
[2019-12-27] MEDS: ASPIRIN 325 MG TABLET PO SCH (08:08)
[2019-12-27] MEDS: NICOTINE 21MG PATCH. TD SCH (08:09)
[2019-12-27] MEDS: METOPROLOL TART IMMED RELEASE 25 MG TABLET PO SCH (08:09)
[2019-12-27] MEDS: LOSARTAN 25 MG TABLET. PO SCH (08:09)
[2019-12-27] MEDS: CHOLECALCIFEROL (VITAMIN D3) 1,000 UNIT TABLET PO SCH (08:09)
--- NOTE | 2019-12-27 10:50 | DISCH ---
DISCHARGE ORDERS DISCHARGE DATE: Dec 27, 2019 FINAL DIAGNOSIS ams hypoglycemia CONDITION AT DISCHARGE: Stable SNF STAY <30 DAYS: Yes ORDERS Discharge Orders Discharge to [] SNU Certification [] Admit to: [] Labs: [] Diet: see below Activity: see below PT: [] OT: [] Other: [] FSBS: [] Oxygen: [] POST DISCHARGE ORDERS Activity Instructions for Disc: Resume previous activity Diet after Discharge: Diabetic No Calorie Level DISCHARGE MEDICATION ORDERS Scheduled Aspirin (Aspirin), 325 MG PO DAILY, (Reported) Cholecalciferol (Vitamin D3) (Vitamin D3), 1,000 UNITS PO BID, (Reported) Lactobacillus Acidophilus (Acidophilus), 1 CAP PO BID, (Reported) Levothyroxine Sodium (Synthroid), 125 MCG PO DAILYAC, (Reported) Losartan Potassium (Losartan Potassium ), 25 MG PO DAILY, (Reported) Metoprolol Tartrate (Metoprolol Tartrate), 25 MG PO BID, (Reported) Nicotine (NICODERM CQ 21mg), 1 PATCH TD DAILY, (Reported) Rosuvastatin Calcium (Crestor), 20 MG PO HS, (Reported) Tramadol Hcl (Tramadol Hcl), 100 MG PO TID, (Reported) Discontinued Medications Atorvastatin Calcium (Atorvastatin Calcium), 80 MG PO QHS, (Reported) Discontinued Reason: Insulin Glargine,Hum.rec.anlog (Lantus), 25 UNIT SQ HS, (Reported) Discontinued Reason: Insulin Lispro (Humalog), 12 UNIT SQ TIDBFRMEAL, (Reported) Discontinued Reason: CAL Harrison MD Dec 27, 2019 10:50
[2019-12-27 11:21] VITALS: BP 172/66
--- NOTE | 2019-12-27 11:24 | DS ---
DATE OF DISCHARGE: HOSPITAL COURSE: The patient is a 69-year-old female patient who was admitted from [facility] with altered mental status and was found to have hypoglycemia treated with D10. We did make some adjustment to her insulin regimen; however, while in the hospital, she was noted to have markedly elevated liver enzymes and therefore, we did arrange for her to have abdominal ultrasound. The ultrasound showed that there is a common bile duct dilatation and mild intrahepatic biliary ductal dilatation. Findings may relate to a downstream obstructing lesion. Gallbladder is distended with layering sludge and stones noted. Right kidney has a partially calcified and completely evaluated the upper pole lesion. Further evaluation with nonemergent renal protocol CT or MRI is recommended. We did arrange for her to have a hepatobiliary scan and the finding is that the patient has prominent hepatic clearance to trace from the blood pool. There is homogenous distribution throughout the liver, the gallbladder ejection fraction measures 87%, normal gallbladder ejection fraction is 35% or greater with the impression that the patient's cystic duct and common bile duct are patent, negative for acute cholecystitis. The gallbladder ejection fraction is within normal limits. His liver enzymes are trending down and therefore, a decision was made to discharge her to [place] to continue the process of rehabilitation as she fell and broke her right sacrum, for which she underwent sacroplasty and also sustained left superior and left inferior pubic ramus fracture. PHYSICAL EXAMINATION: GENERAL: When I saw her this morning, she was sitting slightly propped up in bed, in no apparent respiratory distress. She was pale, but no jaundice, cyanosis or thyromegaly. No jugular venous distention. No limb edema. VITAL SIGNS: Her heart rate was 58, blood pressure was 157/71, temperature was 98, respiratory rate was 18 and oxygen saturation was 97%. The rest of clinical exam is stable, has not really changed. LABORATORY DATA: Her lab work this morning showed her serum sodium 140, potassium 4.8, chloride 109, bicarbonate 22, anion gap of 9, BUN 39, creatinine 1.5. Her estimated GFR was 34 mL per minute. Her glucose was 300. Calcium was 7.9. Total bilirubin is normal. AST, ALT, alkaline phosphatase slightly elevated, but trending down. Her total protein 5.5, albumin 2.2. Her white cell count was 10,000, hemoglobin 12, hematocrit 38, MCV 97, and platelet count of 313,000. Urinalysis was essentially unremarkable. DISCHARGE MEDICATIONS: She was discharged back to [place] to continue on aspirin 325 mg once a day, ergocalciferol vitamin D 1000 units p.o. b.i.d., lactobacillus acidophilus 100 mg twice a day, levothyroxine 125 mcg once a day, losartan potassium 25 mg daily, metoprolol tartrate 25 mg twice a day, Nicoderm patch 21 mg topically daily, Crestor 20 mg once a day, tramadol 100 mg 3 times a day. She is also on Lantus insulin 15 units at bedtime and insulin sliding scale before meals only. CAL CONTRERAS MD DR: LORI/nati JOB#: [id number] / [id number]
--- NOTE | 2019-12-27 11:25 | NUR ---
Pt discharged back to [facility] via [facility]. Report called to SHADIA Ugarte at [facility]. VSS. NAD. Family at bedside. PIV removed without complication. All belongings accounted for. No falls or injury reported.
== END 2019-12-27 11:29 | DRG 639 ==
LOC: ER 17:30 → 1 SOUTH 20:18 → OBSVTOIN 12-26 23:30
PROVIDERS: ADMIT Internal Medicine; ATTEND Internal Medicine
DX: E11.649 Type 2 diabetes mellitus with hypoglycemia without coma (principal); E78.00 Pure hypercholesterolemia, unspecified; E89.0 Postprocedural hypothyroidism; Z96.649 Presence of unspecified artificial hip joint; I25.10 Atherosclerotic heart disease of native coronary artery without angina pectoris; F17.210 Nicotine dependence, cigarettes, uncomplicated; E11.22 Type 2 diabetes mellitus with diabetic chronic kidney disease; E11.42 Type 2 diabetes mellitus with diabetic polyneuropathy; I12.9 Hypertensive chronic kidney disease with stage 1 through stage 4 chronic kidney disease, or unspecified chronic kidney disease; N18.9 Chronic kidney disease, unspecified; K83.8 Other specified diseases of biliary tract; M06.9 Rheumatoid arthritis, unspecified; Z86.73 Personal history of transient ischemic attack (TIA), and cerebral infarction without residual deficits; Z79.4 Long term (current) use of insulin; Z90.710 Acquired absence of both cervix and uterus
CPT/HCPCS: 36415; 51702; 71045; 76705; 78227; 80053; 81001; 82140; 82947; 83605; 83690; 83735; 85025; 85610; 85730; 87040; 93005; 96360; 96361; A9537; G0378; G0379; J1815; 97535; 99285-25; J7030

== ENCOUNTER → 2020-02-18 | Outpatient (CLI) | payer MEDICARE, BC ==
[~2020-02-18] MED LIST changes: +ASPI325T8 PO; +ATORVASTATIN CA80 MG PO; +CHOL200078 PO; +LACT100C2 PO; +NICO1PAT21 TD; +TRAM50TA PO
[2020-02-18 11:44] LABS: ALBUMIN 3.3 g/dL (3.4-5.0); CALCIUM 8.7 mg/dL (8.5-10.1); CREATININE 1.5 mg/dL (0.6-1.0); GFR 34.5; POTASSIUM 5.3 mmol/L (3.5-5.1); TOTAL BILIRUBIN 0.3 mg/dL (0.2-1.0); TOTAL PROTEIN 6.6 g/dL (6.4-8.2)
== END ==
LOC: SPEC 11:23
PROVIDERS: ATTEND Internal Medicine
DX: E11.42 Type 2 diabetes mellitus with diabetic polyneuropathy (principal); E03.9 Hypothyroidism, unspecified; I12.9 Hypertensive chronic kidney disease with stage 1 through stage 4 chronic kidney disease, or unspecified chronic kidney disease; I25.10 Atherosclerotic heart disease of native coronary artery without angina pectoris; E11.22 Type 2 diabetes mellitus with diabetic chronic kidney disease; N18.9 Chronic kidney disease, unspecified
CPT/HCPCS: 36415; 80053; 84443

== ENCOUNTER 2020-06-16 08:43 | Emergency (ER) | payer MEDICARE, BC ==
[~2020-06-16] VITALS: Ht 157.5 cm; Wt 55.1 kg
[2020-06-16 08:47] VITALS: BP 157/77
--- NOTE | 2020-06-16 09:36 | RAD ---
PROCEDURE: ANKLE RIGHT 3V CLINICAL INDICATION / HISTORY: Reason: fall yesterday / Spl. Instructions: / History: . TECHNIQUE: Right ankle 3 views. COMPARISON: None FINDINGS: The ankle mortise is approximated, and the talar dome is unremarkable. The joint space widths are maintained. No fracture or dislocation is identified. Minimal soft tissue swelling is appreciated. Arterial calcifications also noted. Incidental surgical screws in the right first metatarsal is present. IMPRESSION: No acute osseous abnormality in the right ankle. Electronically signed by: Magdaleno Frank MD (06/16/2020 9:33 AM) [id number]
--- NOTE | 2020-06-16 09:42 | PHYS DOC ---
Past History Past Medical History: Diabetes, Hypertension, Hypotension Additional Past Medical Histor: pelvic fx Past Surgical History: Hip Replacement, Hysterectomy Alcohol Use: None Drug Use: None General Adult EDM: Chief Complaint: ANKLE PROBLEM HPI: HPI: 62-year-old female presents with right ankle pain. She fell yesterday. She denies any other injuries except for some right lateral ankle pain. Is most painful when she bears weight. It is not swollen. She denies fever chills. Review of Systems: Review of Systems: Constitutional: Denies fever or chills Eyes: Denies change in visual acuity HENT: Denies nasal congestion or sore throat Respiratory: Denies cough or shortness of breath Cardiovascular: Denies chest pain or edema GI: Denies abdominal pain, nausea, vomiting, bloody stools or diarrhea : Denies dysuria Musculoskeletal: Right ankle pain Integument: Denies rash Neurologic: Denies headache, focal weakness or sensory changes Endocrine: Denies polyuria or polydipsia Lymphatic: Denies swollen glands Psychiatric: Denies depression or anxiety Heart Score: Risk Factors: Risk Factors: DM, Current or recent (<one month) smoker, HTN, HLP, family history of CAD, obesity. Risk Scores: Score 0 - 3: 2.5% MACE over next 6 weeks - Discharge Home Score 4 - 6: 20.3% MACE over next 6 weeks - Admit for Clinical Observation Score 7 - 10: 72.7% MACE over next 6 weeks - Early Invasive Strategies Allergies: Allergies: Allergies Coded Allergies Type Severity Reaction Last Updated Verified No Known Drug Allergies 08/31/19 No Physical Exam: PE: Constitutional: Well developed, well nourished, no acute distress, non-toxic appearance. [] HENT: Normocephalic, atraumatic, bilateral external ears normal, oropharynx moist, no oral exudates, nose normal. [] Eyes: PERRLA, EOMI, conjunctiva normal, no discharge. [] Neck: Normal range of motion, no tenderness, supple, no stridor. [] Cardiovascular:Heart rate regular rhythm, no murmur [] Lungs & Thorax: Bilateral breath sounds clear to auscultation [] Abdomen: Bowel sounds normal, soft, no tenderness, no masses, no pulsatile masses. [] Skin: Warm, dry, no erythema, no rash. [] Back: No tenderness, no CVA tenderness. [] Extremities: Mild right lateral ankle tenderness only with pressure on the plantar surface of the foot simulating weightbearing, no cyanosis, no clubbing, ROM intact, no edema. [] Neurologic: Alert and oriented X 3, normal motor function, normal sensory function, no focal deficits noted. [] Psychologic: Affect normal, judgement normal, mood normal. [] Current Patient Data: Vital Signs: Vital Signs Date Time Temp Pulse Resp B/P (MAP) Pulse Ox O2 Delivery O2 Flow Rate FiO2 06/16/20 08:47 98 18 157/77 (103) 96 Room Air EKG: EKG: [] Radiology/Procedures: Radiology/Procedures: [] Impressions: PROCEDURE: ANKLE RIGHT 3V CLINICAL INDICATION / HISTORY: Reason: fall yesterday / Spl. Instructions: / History: . TECHNIQUE: Right ankle 3 views. COMPARISON: None FINDINGS: The ankle mortise is approximated, and the talar dome is unremarkable. The joint space widths are maintained. No fracture or dislocation is identified. Minimal soft tissue swelling is appreciated. Arterial calcifications also noted. Incidental surgical screws in the right first metatarsal is present. IMPRESSION: No acute osseous abnormality in the right ankle. Electronically signed by: Zak Frank MD (06/16/2020 9:33 AM) [id number] DICTATED AND SIGNED BY: ZAK FRANK MD DATE: 06/16/20 0933 CC: EAN HUBBARD DO; MARKY CANTOR ~ Course & Med Decision Making: Course & Med Decision Making Pertinent Labs and Imaging studies reviewed. (See chart for details) The patient's x-ray is negative for fracture. She has no pain with inversion. This is likely to improve on its own. I have advised the take NSAIDs and rest. She is stable for discharge at this time. If it does not get better, she will follow-up with orthopedics. [] Aylin Disclaimer: Aylin Disclaimer: This electronic medical record was generated, in whole or in part, using a voice recognition dictation system. Departure Departure: Impression: Primary Impression: Right ankle pain Qualified Codes: M25.571 - Pain in right ankle and joints of right foot Disposition: HOME/RESIDENCE PRIOR TO ADM Condition: STABLE Referrals: MARKY CANTOR (PCP) Patient Instructions: Ankle Pain Justification of Admission: Justification of Admission: Justification of Admission Dx: N/A EAN HUBBARD DO Jun 16, 2020 09:42
== END 2020-06-16 10:04 | disposition home or self-care (01) ==
LOC: ER 08:43
DX: M25.571 Pain in right ankle and joints of right foot (principal); E11.9 Type 2 diabetes mellitus without complications; I10 Essential (primary) hypertension; W18.39XA Other fall on same level, initial encounter; Y93.89 Activity, other specified; Y92.89 Other specified places as the place of occurrence of the external cause; Y99.8 Other external cause status
CPT/HCPCS: 73610; 99284

== ENCOUNTER 2020-12-29 12:38 | Emergency (ER) | payer MEDICARE, BC ==
[~2020-12-29] VITALS: Ht 157.5 cm; Wt 54.0 kg
[~2020-12-29 12:38] MED LIST changes: -BUPR-192 PO; +BUPR150T21 PO
[2020-12-29 13:17] LABS: BASO % 0 % (0-3); EOS # 0.1 x10^3/uL (0.0-0.7); EOS % 1 % (0-3); HEMATOCRIT 36.6 % (36.0-47.0); HEMOGLOBIN 11.8 g/dL (12.0-15.5); LYMPH # 1.6 x10^3/uL (1.0-4.8); LYMPH % 20 % (24-48); MEAN CORPUSCULAR HEMOGLOBIN 31 pg (25-35); MEAN CORPUSCULAR HGB CONC 32 g/dL (31-37); MEAN CORPUSCULAR VOLUME 97 fL (79-100); MONO # 1.2 x10^3/uL (0.0-1.1); MONO % 14 % (0-9); NEUT # 5.3 x10^3uL (1.8-7.7); NEUT % 64 % (31-73); PLATELET COUNT 283 x10^3/uL (140-400); RED BLOOD COUNT 3.78 x10^6/uL (3.50-5.40); RED CELL DISTRIBUTION WIDTH 13.5 % (11.5-14.5); WHITE BLOOD COUNT 8.2 x10^3/uL (4.0-11.0)
[2020-12-29 13:22] LABS: CALCIUM 8.2 mg/dL (8.5-10.1); CREATININE 2.2 mg/dL (0.6-1.0); GFR 22.2
[2020-12-29] MEDS: IV NORMAL SALINE 500ML 500 ML IV ONE ×3 (13:24→15:40)
[2020-12-29 13:29] LABS: ALBUMIN 2.3 g/dL (3.4-5.0); ALBUMIN/GLOBULIN RATIO 0.6 (1.0-1.7); MAGNESIUM 2.2 mg/dL (1.8-2.4); TOTAL BILIRUBIN 0.2 mg/dL (0.2-1.0); TOTAL PROTEIN 6.1 g/dL (6.4-8.2)
--- NOTE | 2020-12-29 13:32 | PHYS DOC ---
Past History Past Medical History: Diabetes, Hypertension, Hypotension Additional Past Medical Histor: pelvic fx, rheumatoid arthritis. (CROW SHETH APRN) Past Surgical History: Hip Replacement, Hysterectomy (CROW SHETH APRN) Alcohol Use: None Drug Use: None (CROW SHETH APRN) Adult General Chief Complaint Chief Complaint: MECHANICAL FALL HPI HPI Patient is a 70-year-old female presents to the emergency department via EMS transport related to near syncopal episode at home. Patient reports she was st anding up from her chair to answer the front door to let her home health nurse and for an appointment today when she lost balance and her legs "became jellylike "and she fell backward against a heating unit. Patient denies loss of consciousness. Patient denies any dizziness. Patient denies any head pain, neck pain, back pain. Patient states she did not injure herself when she fell. Patient reports seeing her painting contractor Dr. DYE yesterday and was diagnosed with a urinary tract infection and dehydration. She was started on 500 mg Levaquin once a day for 10 days. She states she has taken [address] DYE also recommended she increase her fluids at home. Patient reports she has been trying to increase her fluids at home but does not feel as if she is doing a good enough job. Patient reports she has had a flu vaccination in the fall 2019, has not had a COVID-19 vaccination, patient denies chest pain, denies shortness of breath, denies recent fever or chills, denies chest congestion or nasal congestion, denies sore throat. Patient denies abdominal pains, nausea, vomiting, or diarrhea. Patient denies any increased thirst or increased urination. Patient denies seeing any rashes of her skin. Patient denies any recent anxieties or depressions. Patient states she is a cigarette smoker, has blockages in her heart and is followed by accessibility lift technician, patient also states she is not a candidate for open heart surgery related to her health status. Patient denies drinking alcohol or illicit drug use. EMS plaster pattern caster reports patient was orthostatic upon their initial assessment at the patient's residence, they gave a 250 cc LR bolus IV and placed her in Trendelenburg, plaster pattern caster reports patient "pinked up and felt much better ", blood glucose monitor in route was 213. Patient's daughter at bedside reports concerns of urinary tract infection causing her dehydration. Patient's daughter states that the patient is not eating nor drinking as much as she should since her diagnosis of her urinary tract infection. Patient has a past medical history of coronary artery disease, hypertension, peripheral neuropathy, chronic renal insufficiency, rheumatoid arthritis, cerebrovascular accident, hypothyroidism, type 2 diabetes. Patient has a past medical history of hysterectomy, tonsillectomy, thyroidectomy. Cardiac cath showing quadruple vessel coronary artery disease. (CROW SHETH APRN) Review of Systems Review of Systems 14 body systems of review of systems have been reviewed. See HPI for pertinent positives and negative responses, otherwise all other systems are negative, nonpertinent or noncontributory. (CROW SHETH APRN) Current Medications Current Medications Patient reports taking 110 mg of Synthroid, 40 mg of lovastatin, 15 units Lantus insulin, 15 units Humalog insulin, 81 mg aspirin, pyridostigmine 30 mg as needed, Xarelto 2.5 mg, Orencia infusions. Current Medications Medications (Trade) Dose Ordered Sig/Agustin Start Time Stop Time Status Last Admin Dose Admin Sodium Chloride 500 ml @ 0 mls/hr 1X ONCE 12/29/20 13:00 12/29/20 13:01 DC 12/29/20 13:24 500 MLS/HR (CROW SHETH APRN) Allergies Allergies Allergies Coded Allergies Type Severity Reaction Last Updated Verified No Known Drug Allergies 12/29/20 No (CROW SHETH APRN) Physical Exam Physical Exam Constitutional: Well developed, well nourished, no acute distress, non-toxic appearance. 70-year-old patient in no apparent distress HENT: Normocephalic, atraumatic, bilateral external ears normal, oropharynx moist, no oral exudates, nose normal. Oropharynx moist, pink, no uvular s welling, no peritonsillar edema, no infectious process of the throat appreciated. Bilateral TMs within normal limits. No lymphadenopathy of the head or neck. Eyes: PERRLA, EOMI, conjunctiva normal, no discharge. Neck: Normal range of motion, no tenderness, supple, no stridor. No nuchal rigidity, no midline spinal tenderness, no meningismus signs. Cardiovascular:Heart rate regular rhythm, no murmur, heart sounds S1-S2 to auscultation. Lungs & Thorax: Bilateral breath sounds clear to auscultation all lung padilla. Abdomen: Bowel sounds normal, soft, no tenderness, no masses, no pulsatile masses. Skin: Warm, dry, no erythema, no rash. Back: No tenderness, no CVA tenderness. No midline C-spine tenderness. Extremities: No tenderness, no cyanosis, no clubbing, ROM intact, no edema. Distal cap refill less than 2 seconds, +2/4 pulses. Neurologic: Alert and oriented X 3, normal motor function, normal sensory function, no focal deficits noted. Psychologic: Affect normal, judgement normal, mood normal. (CROW SHETH APRN) Current Patient Data Vital Signs Vital Signs Date Time Temp Pulse Resp B/P (MAP) Pulse Ox O2 Delivery O2 Flow Rate FiO2 12/29/20 12:40 97.1 95 18 156/74 (101) 98 Lab Results Laboratory Tests Test 12/29/20 12:45 White Blood Count 8.2 x10^3/uL (4.0-11.0) Red Blood Count 3.78 x10^6/uL (3.50-5.40) Hemoglobin 11.8 g/dL (12.0-15.5) L Hematocrit 36.6 % (36.0-47.0) Mean Corpuscular Volume 97 fL (79-100) Mean Corpuscular Hemoglobin 31 pg (25-35) Mean Corpuscular Hemoglobin Concent 32 g/dL (31-37) Red Cell Distribution Width 13.5 % (11.5-14.5) Platelet Count 283 x10^3/uL (140-400) Neutrophils (%) (Auto) 64 % (31-73) Lymphocytes (%) (Auto) 20 % (24-48) L Monocytes (%) (Auto) 14 % (0-9) H Eosinophils (%) (Auto) 1 % (0-3) Basophils (%) (Auto) 0 % (0-3) Neutrophils # (Auto) 5.3 x10^3uL (1.8-7.7) Lymphocytes # (Auto) 1.6 x10^3/uL (1.0-4.8) Monocytes # (Auto) 1.2 x10^3/uL (0.0-1.1) H Eosinophils # (Auto) 0.1 x10^3/uL (0.0-0.7) Basophils # (Auto) 0.0 x10^3/uL (0.0-0.2) Sodium Level 140 mmol/L (136-145) Potassium Level 4.0 mmol/L (3.5-5.1) Chloride Level 104 mmol/L (98-107) Carbon Dioxide Level 24 mmol/L (21-32) Anion Gap 12 (6-14) Blood Urea Nitrogen 33 mg/dL (7-20) H Creatinine 2.2 mg/dL (0.6-1.0) H Estimated GFR (Cockcroft-Gault) 22.2 BUN/Creatinine Ratio 15 (6-20) Glucose Level 274 mg/dL (70-99) H Calcium Level 8.2 mg/dL (8.5-10.1) L Magnesium Level Pending Total Bilirubin Pending Aspartate Amino Transferase (AST) Pending Alanine Aminotransferase (ALT) Pending Alkaline Phosphatase Pending Total Protein Pending Albumin Pending Albumin/Globulin Ratio Pending (CROW SHETH APRN) EKG EKG EKG performed at 1306 by house respiratory therapy staff, shows a normal sinus rhythm without ectopy with a heart rate of 89 bpm, VT interval 0.140, QTc interval 0.488, no acute STEMI, no ACS, no acute ischemia appreciated EKG interpreted by ED attending physician Dr. Alvarado. (CROW SHETH APRN) Radiology/Procedures Radiology/Procedures PATIENT: SIOBHAN SPANN ACCOUNT: [id number] : 1950 LOCATION: ER AGE: 70 SEX: F EXAM STATUS: REG ER ORD. PHYSICIAN: CROW SHETH APRN REASON: NEAR SYNCOPE PROCEDURE: CT HEAD AND CERVICAL SPINE WO EXAM: Head and cervical spine CT without contrast. HISTORY: Near syncope. TECHNIQUE: Computed tomographic images of the head and cervical spine were obtained without contrast. *One or more of the following individualized dose reduction techniques were utilized for this examination: 1. Automated exposure control. 2. Adjustment of the mA and/or kV according to patient size. 3. Use of iterative reconstruction technique. COMPARISON: None. FINDINGS: There is no acute or subacute extra-axial or intraparenchymal hemorrhage. There is no mass effect or midline shift. There is no hydrocephalus. There are areas of decreased attenuation within the cerebral white matter, nonspecific and likely related to chronic small vessel disease. There is cerebral atrophy. There are chronic lacunar infarcts within the bilateral basal ganglia and thalami. There is near complete opacification of the right maxillary sinus likely due to chronic sinusitis. There is evidence of lens surgery. The mastoid air cells are clear. There is no calvarial lesion. Cervical spine: There is cervical kyphosis due to thoracic kyphoscoliosis. There is mild anterolisthesis of C4 on C5 and C5 on C6. There is degenerative endplate remodeling with disc space narrowing and anterior spurring at C3 6 to C7. There is multilevel facet arthropathy. There is no fracture or suspicious osseous lesion. The combination of degenerative changes results in mild right foraminal stenosis at C3-C4. There is pulmonary emphysema. There is calcified atherosclerotic plaque involving the carotid arteries. The airways midline and widely patent. IMPRESSION: 1. No acute intracranial finding or evidence of acute cervical spine trauma. 2. Bilateral cerebral white changes, likely due to chronic small vessel disease. 3. Suspected small chronic infarcts within the bilateral basal ganglia and thalami. 4. Degenerative change involving the cervical spine, described above. Electronically signed by: Madelin Bah MD (12/29/2020 1:34 PM) [id number] DICTATED AND SIGNED BY: MADELIN BAH MD DATE: 12/29/201331 CC: CROW SHETH APRN; MARKY CANTOR ~MTH0 0 PATIENT: SIOBHAN SPANN ACCOUNT: [id number] : 1950 LOCATION: ER AGE: 70 SEX: F EXAM STATUS: REG ER ORD. PHYSICIAN: CROW SHETH APRN REASON: NEAR SYNCOPE PROCEDURE: PORTABLE CHEST 1V EXAM: Chest, single view. HISTORY: Near syncope. COMPARISON: None. FINDINGS: A frontal view of the chest is obtained. There is no infiltrate, pleural effusion or pneumothorax. The heart is normal in size. IMPRESSION: No acute pulmonary finding. Electronically signed by: Madelin Bah MD (12/29/2020 1:31 PM) [id number] DICTATED AND SIGNED BY: MADELIN BAH MD DATE: 12/29/20 1330 CC: CROW SHETH APRN; MARKY CANTOR ~MTH0 0 (CROW SHETH APRN) Heart Score C/O Chest Pain: No HEART Score for Chest Pain: HEART Score for Chest Pain Response (Comments) Value History Slighlty/Non-Suspicious 0 ECG Normal 0 Age > 65 2 Risk Factors 1 or 2 Risk Factors 1 Troponin >1-<3x Normal Limit 1 Total 4 Risk Factors: Risk Factors: DM, Current or recent (<one month) smoker, HTN, HLP, family history of CAD, obesity. Risk Scores: Risk Factors: DM, Current or recent (<one month) smoker, HTN, HLP, family history of CAD, obesity. (CROW SHETH APRN) Course & Med Decision Making Course & Med Decision Making Pertinent Labs and Imaging studies reviewed. (See chart for details) 70-year-old female, vital signs reviewed, presents to the emergency department with complaints of near syncopal episode at home while standing up. EMS paramedics noted patient to be orthostatic and treated with 250 cc LR in the field. The patient denied any complaints upon physical examination in the ED today. ED work-up: CT head and C-spine to rule out neurological process, cardiopulmonary work-up, urinalysis assay. Patient CT head and C-spine negative for acute process per radiologist interpretation, chest x-ray negative for acute process per radiologist interpretation, patient's urine was infected, is currently being treated by her primary care doctor and painting contractor with Levaquin, is on day 2 of a 10-day antibiotic regimen. Patient labs show hypocalcemia of 8.2, patient given 500 mg Os-Sukhwinder in ER today. Patient's troponin elevated at 0.096, creatinine elevated at 2.2. Discussed findings with patient, will perform a 3-hour repeat troponin and basic metabolic panel. Patient remains nontoxic in appearance, patient continues to deny chest pain, shortness of breath, or physical complaints. Patient continues to iterate she feels fine and is ready to go home. Patient has a history of orthostasis, states that her doctor is well aware of her low blood pressure problems with position changes, states that she is supposed to sit for at least 2 to 3 minutes before standing and moving around. Discussed with patient possibility of admission related to elevated troponin and creatinine. Patient has refused this recommendation, but states she will stay for serial cardiac enzymes and repeat basic metabolic panel. Patient's 3-hour repeat troponin elevated to 0.102, patient's serum creatinine decreased to 1.9, patient serum calcium decreased to 7.6, however patient was treated with p.o. calcium in the ED. Discussed with patient recommendation of admission to the hospital and evaluation by redevelopment specialist related to her elevated troponin. Patient is adamant she does not want to be admitted to the hospital for her heart, patient states that she already knows she has a bad heart and has clogged arteries, she has been denied open heart surgery because of her health status, patient states "I do not see the point ". Discussed with patient risks versus benefits of excepting recommended admission to the hospital and evaluation by redevelopment specialist versus leaving the emergency department AGAINST MEDICAL ADVICE, patient gave verbal understanding of risks versus benefits. Patient is adamant she wishes to go home. Encouraged patient to return immediately to the emergency department for worsening symptoms or other concerns. Patient states she will call her accessibility lift technician today and/or tomorrow and review laboratory results. Reexamination of the patient, patient remains nontoxic in appearance, patient does have long history of orthostasis. Patient is warm pink and dry. It is of my opinion the patient is alert and oriented x3, discussed with patient and family risk and benefits of AMA, patient is able to make her own educated medical decisions. Patient's family member encourages patient to stay and be treated however patient continues to refuse admission offer and wants to go home at this time. Patient was discharged from this emergency department AGAINST MEDICAL ADVICE. An AMA form was filled out by me, patient signed with registered nurse witness. (CROW SHETH APRN) Dragon Disclaimer Dragon Disclaimer This electronic medical record was generated, in whole or in part, using a voice recognition dictation system. (CROW SHETH APRN) Departure Departure: Impression: Primary Impression: Near syncope Additional Impressions: Orthostatic hypotension Elevated serum creatinine Elevated troponin I level Hypokalemia Left against medical advice Disposition: 07 AMA/ELOPED/LWBS Condition: STABLE Referrals: MARKY CANTOR (PCP) Additional Instructions: I have urged you to stay and be admitted to the hospital for further cardiology evaluation, you have refused this recommendation and decided to leave AGAINST MEDICAL ADVICE. Please call your accessibility lift technician and let them know the following labs. White blood cell 8.2, hemoglobin 11.8, hematocrit 36.6, all other CBC equivocal. Sodium 141, potassium 4.0, chloride 107, CO2 10, creatinine 1.9, BUN 30, lactic acid 0.9, calcium 7.6, serial troponin 3 hours apart 0.096, elevated to 0.102.twelve-lead EKG shows a normal sinus rhythm without ectopy with a heart rate of 89 bpm, VT interval 0.140, QTc interval 0.488, no acute STEMI, no ACS, no acute ischemia appreciated. HEART score equals 4. You have an elevated troponin and other labs that suggest your heart is under stress, I am very concerned that you may from this if not further evaluated and treated. Please return to the emergency department immediately for worsening symptoms or other concerns. EMERGENCY DEPARTMENT GENERAL DISCHARGE INSTRUCTIONS Thank you for coming to [facility] (ED) today and trusting us with you care. We trust that you had a positivie experience in our Emergency Department. If you wish to speak to the department management, you may call the director at [phone]. YOUR FOLLOW UP INSTRUCTIONS ARE FOLLOWS: 1. Do you have a private Doctor? If you do not have a private doctor, please ask for a resource list of physicians or clinics that may be able to assist you with follow up care. 2. The Emergency Physician has interpreted your x-rays. The X-Ray specialist w ill also review them. If there is a change in the findings, you will be notified in 48 hours when at all possible. 3. A lab test or culture has been done, your results will be reviewed and you will be notified if you need a change in treatment. ADDITIONAL INSTRUCTIONS AND INFORMATION: 1. Your care today has been supervised by a physician who is specially trained in emergency care. Many problems require more than one evaluation for a complete diagnosis and treatment. We recommend that you schedule your follow up appointment as recommended to ensure complete treatment of you illness or injury. If you are unable to obtain follow up care and continue to have a problem, or if your condition worsens, we recommend that you return to the ED. 2. We are not able to safely determine your condition over the phone nor are we able to give sound medical advice over the phone. For these safety reasons, if you call for medical advice we will ask you to come to the ED for further evaluation. 3. If you have any questions regarding these discharge instructions please call the ED at [phone]. SAFETY INFORMATION: In the interest of safety, wellness, and injury prevention; we encourage you to wear your sealbelt, if you smoke; quite smoking, and we encourage family to use a protective helmet for bicycling and other sporting events that present an increased risk for head injury. IF YOUR SYMPTOMS WORSEN OR NEW SYMPTOMS DEVELOP, OR YOU HAVE CONCERNS ABOUT YOUR CONDITION; OR IF YOUR CONDITION WORSENS WHILE YOU ARE WAITING FOR YOUR FOLLOW UP APPOINTMENT; EITHER CONTACT YOUR PRIMARY CARE DOCTOR, THE PHYSICIAN WHOSE NAME AND NUMBER YOU WERE GIVEN, OR RETURN TO THE ED IMMEDIATELY. Attending Signature Attending Signature I have reviewed the PA/ELECTRICAL EQUIPMENT TECHNICIAN's note and plan of care. I was available for consultation as needed during the patient's visit in the emergency department. I agree with the clinical impression, plan, and disposition. (CROW ALVARADO DO) Problem Qualifiers CROW SHETH APRN Dec 29, 2020 13:32 CROW ALVARADO DO Dec 30, 2020 06:31
--- NOTE | 2020-12-29 13:33 | RAD ---
EXAM: Chest, single view. HISTORY: Near syncope. COMPARISON: None. FINDINGS: A frontal view of the chest is obtained. There is no infiltrate, pleural effusion or pneumo thorax. The heart is normal in size. IMPRESSION: No acute pulmonary finding. Electronically signed by: Madelin Nation MD (12/29/2020 1:31 PM) [id number]
--- NOTE | 2020-12-29 13:37 | RAD ---
EXAM: Head and cervical spine CT without contrast. HISTORY: Near syncope. TECHNIQUE: Computed tomographic images of the head and cervical spine were obtained without contrast. *One or more of the following individualized dose reduction techniques were utilized for this examina tion: 1. Automated exposure control. 2. Adjustment of the mA and/or kV according to patient size. 3. Use of iterative reconstruction technique. COMPARISON: None. FINDINGS: There is no acute or subacute extra-axial or intraparenchymal hemorrhage. There is no mass effect or midline shift. There is no hydrocephalus. There are areas of decreased attenuation within the cerebral white matter, nonspecific and likely rel ated to chronic small vessel disease. There is cerebral atrophy. There are chronic lacunar infarcts w ithin the bilateral basal ganglia and thalami. There is near complete opacification of the right maxillary sinus likely due to chronic sinusitis. Th ere is evidence of lens surgery. The mastoid air cells are clear. There is no calvarial lesion. Cervical spine: There is cervical kyphosis due to thoracic kyphoscoliosis. There is mild anterolisthe sis of C4 on C5 and C5 on C6. There is degenerative endplate remodeling with disc space narrowing and anterior spurring at C3 6 to C7. There is multilevel facet arthropathy. There is no fracture or susp icious osseous lesion. The combination of degenerative changes results in mild right foraminal stenos is at C3-C4. There is pulmonary emphysema. There is calcified atherosclerotic plaque involving the ca rotid arteries. The airways midline and widely patent. IMPRESSION: 1. No acute intracranial finding or evidence of acute cervical spine trauma. 2. Bilateral cerebral white changes, likely due to chronic small vessel disease. 3. Suspected small chronic infarcts within the bilateral basal ganglia and thalami. 4. Degenerative change involving the cervical spine, described above. Electronically signed by: Madelin Nation MD (12/29/2020 1:34 PM) [id number]
[2020-12-29] MEDS: CALCIUM CARBONATE 500 MG TABLET PO SCH (14:15)
--- NOTE | 2020-12-29 14:32 | EKG ---
[address] [address] Test Date: 2020-12-29 Test Time: 13:06:56 Pat Name: SIOBHAN SPANN Department: Room: Gender: F Flavor Room Worker: KAMERON : 1950 Requested By: CROW SHETH Order Number: [id number] Reading MD: Measurements Intervals [place] Rate: 89 P: 54 HI: 140 QRS: 28 QRSD: 106 T: 87 QT: 400 QTc: 488 Interpretive Statements SINUS RHYTHM LEFT ATRIAL ABNORMALITY T ABNORMALITY IN HIGH LATERAL LEADS PROLONGED QT ABNORMAL ECG RI6.02 No previous ECG available for comparison
[2020-12-29 15:22] LABS: BILIRUBIN,URINE NEG (NEG); CLARITY,URINE CLEAR; COLOR,URINE YELLOW; GLUCOSE,URINE 500 mg/dL (NEG); NITRITE,URINE NEG (NEG); UROBILINOGEN,URINE 0.2 mg/dL (0.2 mg/dL)
[2020-12-29 15:29] LABS: AMORPHOUS SEDIMENT,UR PRESENT /HPF; BACTERIA,URINE FEW /HPF (0-FEW); SQUAMOUS EPITHELIAL CELL,UR FEW /LPF
[2020-12-29 16:34] LABS: CALCIUM 7.6 mg/dL (8.5-10.1); CREATININE 1.9 mg/dL (0.6-1.0); GFR 26.3
[2020-12-29 17:40] VITALS: BP 179/83
== END 2020-12-29 18:22 | disposition left against medical advice (07) ==
LOC: ER 12:38
DX: R55 Syncope and collapse (principal); I95.1 Orthostatic hypotension; R77.8 Other specified abnormalities of plasma proteins; E87.6 Hypokalemia; R79.89 Other specified abnormal findings of blood chemistry; I10 Essential (primary) hypertension; I25.10 Atherosclerotic heart disease of native coronary artery without angina pectoris; E11.42 Type 2 diabetes mellitus with diabetic polyneuropathy; E11.22 Type 2 diabetes mellitus with diabetic chronic kidney disease; I12.9 Hypertensive chronic kidney disease with stage 1 through stage 4 chronic kidney disease, or unspecified chronic kidney disease; N18.9 Chronic kidney disease, unspecified; M06.9 Rheumatoid arthritis, unspecified; E03.9 Hypothyroidism, unspecified; Z87.440 Personal history of urinary (tract) infections
CPT/HCPCS: 36415; 70450; 71045; 72125; 80048; 80053; 81001; 82553; 83605; 83735; 84484; 85025; 85610; 85730; 93005; 96360; 96361; 99285; J7040

== ENCOUNTER 2021-01-02 14:53 | Inpatient (IN) | payer MEDICARE, BC ==
[~2021-01-02] VITALS: Ht 162.6 cm; Wt 51.6 kg
--- NOTE | 2021-01-02 15:14 | PHYS DOC ---
Past History Past Medical History: Diabetes, Hypertension, Hypotension Additional Past Medical Histor: pelvic fx, rheumatoid arthritis. Past Surgical History: Hip Replacement, Hysterectomy Alcohol Use: None Drug Use: None Adult General Chief Complaint Chief Complaint: SYNCOPE HPI HPI Patient is a 70-year-old female who presents via EMS for syncope. This was an unwitnessed episode. Patient was at home with son, was ambulating and trying to transfer from assistive walking device to commode when she felt lightheaded and started sweating. Son noticed that his mother did not look well and guided her to the floor. Son reports to EMS that patient "passed out" and was unresponsive temporarily prompting him to call EMS. Patient was alert oriented and back to baseline on arrival per EMS and son. Fingerstick blood sugar was greater than 120 and patient was transported to our facility for evaluation. Of note patient was seen and evaluated at our ER 4 days ago and was found to have an NSTEMI. She left AMA at that time given the fact that she has history of CABG and declined further inpatient medical intervention as she knows she is a poor candidate for surgical intervention versus other intervention. 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 She is otherwise been taking all other home medications as scheduled. No sick contacts, fever, vision changes, changes in taste or smell, chest pain, shortness of breath, abdominal pain, motor or sensory changes Review of Systems Review of Systems Fourteen body systems of review of systems have been reviewed. See HPI for p ertinent positives and negative responses, other helm all other systems are negative, non-pertinent or non-contributory Allergies Allergies Allergies Coded Allergies Type Severity Reaction Last Updated Verified No Known Drug Allergies 12/29/20 No Physical Exam Physical Exam General: Appears well, non toxic, and comfortable Skin: Warm, dry. Normal for ethnicity. HEENT: Atraumatic. PERRLA. Moist mucous membranes. Neck: Trachea midline. Normal ROM. Respiratory: Normal WOB. CTAB w/o w/r/r. No tachypnea. Cardiovascular: Regular rate and rhythm. Normal peripheral perfusion. No edema. Abdomen: Soft. Non tender. No distension. Back: Normal ROM. Musculoskeletal: No swelling or deformity. Neuro: Alert and oriented x 4. MAEE. GCS 15. Normal FNF. Negative pronator drift. Normal heel to simpson. Normal Lorraine. CN II-XII intact. Normal strength and sensation. Normal speech. Psych: Normal affect and mood. Current Patient Data Vital Signs Vital Signs Date Time Temp Pulse Resp B/P (MAP) Pulse Ox O2 Delivery O2 Flow Rate FiO2 01/02/21 15:05 97.4 93 16 126/69 (88) 96 Lab Results Laboratory Tests Test 01/02/21 15:00 Glucose (Fingerstick) 203 mg/dL (70-99) H EKG EKG EKG ordered and interpreted by myself at 1507 hrs. sinus rhythm at 88 bpm, unremarkable intervals besides QTC at 480, left axis deviation, nonspecific T wave abnormalities noted in leads III and aVL, no other acute ischemic findings, no STEMI. Prior EKG obtained 12/29/2020 used for comparison. Prior T wave abnormalities noted in leads III and aVL present at that time. There was no left axis deviation noted at that time, otherwise EKG grossly unchanged Radiology/Procedures Radiology/Procedures PROCEDURE: PORTABLE CHEST 1V EXAM: Chest, single view. HISTORY: Syncope. COMPARISON: 12/29/2020 FINDINGS: A frontal view of the chest is obtained. There is no infiltrate, pleural effusion or pneumothorax. The heart is normal in size. IMPRESSION: No acute pulmonary finding. Electronically signed by: Madelin Nation MD (01/02/2021 3:37 PM) [id number] Heart Score C/O Chest Pain: No HEART Score for Chest Pain: HEART Score for Chest Pain Response (Comments) Value History Moderately Suspicious 1 ECG Nonspecific Repolarizatio 1 Age > 65 2 Risk Factors >3 Risk Factors or Hx CAD 2 Troponin >1-<3x Normal Limit 1 Total 7 Risk Factors: Risk Factors: DM, Current or recent (<one month) smoker, HTN, HLP, family history of CAD, obesity. Risk Scores: Risk Factors: DM, Current or recent (<one month) smoker, HTN, HLP, family history of CAD, obesity. Course & Med Decision Making Course & Med Decision Making Afebrile hemodynamically stable patient with history and physical exam concerning for near syncope After comprehensive chart review, appears patient is currently being treated for UTI in outpatient setting on day 6 of 10 with Levaquin. Had recent NSTEMI first discovered 12/29/2020 and left AMA from our facility. Both dxs are likely contributing to patient's ongoing near syncope and weakness I discussed comprehensive ER work-up today with patient and son who is at bedside. I discussed patient had CATIE and was dehydrated and that she was recovering from recent NSTEMI. Patient has poor gait and high fall risk if discharged home given current weakness I called hospitalist and discussed case, Dr. Guadalupe agreed for need of admission to [facility] for further evaluation. I did disclose that patient was recovering from recent NSTEMI and that she was deemed a poor surgical candidate due to prior stroke and ongoing heavy tobacco use I discussed CODE STATUS at bedside with patient and son, no prior will or other documents have been signed or addressed. Patient wishes to remain full code at present. I updated both patient and son on proposed plan of care that involved hospital admission and they were both amenable. All questions and concerns addressed prior to ER transport to [facility] for admission Dragon Disclaimer Dragon Disclaimer This electronic medical record was generated, in whole or in part, using a voice recognition dictation system. Departure Departure: Impression: Primary Impression: Nelxn-sr-xspkihl kidney injury Additional Impressions: Elevated troponin I level Near syncope Disposition: 09 ADMITTED INPT THIS HOSP Admitting Physician: Yvan Robles Referrals: MARKY CANTOR (PCP) Problem Qualifiers GLENDA CASTELLANO DO Jan 02, 2021 15:14
--- NOTE | 2021-01-02 15:25 | EKG ---
[address] [address] Test Date: 2021-01-02 Test Time: 15:02:50 Pat Name: SIOBHAN SPANN Department: Room: Gender: F Pharmacy Messenger: SAIRA : 1950 Requested By: GLENDA CASTELLANO Order Number: [id number] Reading MD: Alon Onofre MD Measurements Intervals [place] Rate: 88 P: 44 TX: 144 QRS: -2 QRSD: 108 T: 100 QT: 394 QTc: 480 Interpretive Statements SINUS RHYTHM Electronically Signed On 01-03-2021 15:13:52 CDT by Alon Onofre MD
--- NOTE | 2021-01-02 15:39 | RAD ---
EXAM: Chest, single view. HISTORY: Syncope. COMPARISON: 12/29/2020 FINDINGS: A frontal view of the chest is obtained. There is no infiltrate, pleural effusion or pneumo thorax. The heart is normal in size. IMPRESSION: No acute pulmonary finding. Electronically signed by: Madelin Nation MD (01/02/2021 3:37 PM) [id number]
[2021-01-02 15:40] LABS: BASO # 0.1 x10^3/uL (0.0-0.2); BASO % 1 % (0-3); EOS # 0.3 x10^3/uL (0.0-0.7); EOS % 3 % (0-3); HEMATOCRIT 40.7 % (36.0-47.0); HEMOGLOBIN 13.1 g/dL (12.0-15.5); LYMPH # 2.2 x10^3/uL (1.0-4.8); LYMPH % 21 % (24-48); MEAN CORPUSCULAR HEMOGLOBIN 31 pg (25-35); MEAN CORPUSCULAR HGB CONC 32 g/dL (31-37); MEAN CORPUSCULAR VOLUME 96 fL (79-100); MONO % 10 % (0-9); NEUT # 6.7 x10^3uL (1.8-7.7); NEUT % 65 % (31-73); PLATELET COUNT 350 x10^3/uL (140-400); RED BLOOD COUNT 4.24 x10^6/uL (3.50-5.40); RED CELL DISTRIBUTION WIDTH 13.4 % (11.5-14.5); WHITE BLOOD COUNT 10.3 x10^3/uL (4.0-11.0)
[2021-01-02 15:48] LABS: CALCIUM 9.4 mg/dL (8.5-10.1); CREATININE 2.4 mg/dL (0.6-1.0); GFR 20.1; POTASSIUM 4.6 mmol/L (3.5-5.1)
[2021-01-02] MEDS ORDERED: ACETAMINOPHEN 325 MG TABLET PO PRN (16:30)
[2021-01-02 17:06] VITALS: BP 154/87
[2021-01-02] MEDS ORDERED: INSU100I13 SQ (17:48)
[2021-01-02] MEDS ORDERED: VIT1CAPS12 PO (17:48)
[2021-01-02] MEDS ORDERED: LEVO500T8 PO (17:48)
[2021-01-02] MEDS ORDERED: PYRI60TA PO (17:48)
[2021-01-02] MEDS ORDERED: BRIM5DRO2 OP (17:48)
[2021-01-02] MEDS ORDERED: ASPI-630 PO (17:48)
[2021-01-02] MEDS ORDERED: RIVA10TA PO (17:48)
[2021-01-02] MEDS ORDERED: ABAT50SY SQ (17:48)
[2021-01-02] MEDS ORDERED: INSU100V SQ (17:48)
[2021-01-02] MEDS ORDERED: LEVO100T PO (17:48)
--- NOTE | 2021-01-02 17:52 | NUR ---
The patient, SIOBHAN SPANN, 70 y/o, F admitted by CAL CONTRERAS MD, was given written information regarding hospital policies, unit procedures and contact persons. Valuables were checked and VS taken please see chart.
[2021-01-02] MEDS ORDERED: PYRIDOSTIGMINE BROMIDE 60 MG TABLET PO PRN (18:30)
[2021-01-02] MEDS ORDERED: DEXTROSE 50% 25 GM / 50ML DISP.SYRIN. IV PRN (19:00)
[2021-01-02] MEDS: IV NORMAL SALINE 1,000ML 1,000 ML IV SCH (19:30)
--- NOTE | 2021-01-02 20:23 | NUR ---
PT WITH FSBS OF 413. PT REPORTS SHE HAS NOT TAKEN ANY SSI SINCE BREAKFAST. DR CONTRERAS NOTIFIED AND NEW ORDER RECEIVED FOR HUMALOG 5 UNITS SQ X1 NOW. PT ALSO TO RECEIVE EMILIE DOSE OF LANTUS 15 UNITS SQ.
[2021-01-02] MEDS ORDERED: INSULIN LISPRO 300 UNITS/3 ML VIAL. SQ ONE (20:30)
[2021-01-02] MEDS ORDERED: NON FORMULARY ITEM (Insulin Lispro (Humalog) 1 UNIT) SQ SCH (21:00)
[2021-01-02] MEDS: BRIMONIDINE 0.2% OPHTH SOLUTION 5ML BOTTLE. OU SCH (21:56)
[2021-01-02] MEDS: TIMOLOL 0.5% OPHTH SOLUTION 5ML BOTTLE. OU SCH (21:56)
[2021-01-02] MEDS: INSULIN GLARGINE SYRINGE. SQ SCH (21:57)
[2021-01-02] MEDS: ATORVASTATIN CALCIUM 20 MG TABLET PO SCH (21:58)
[2021-01-02 23:42] VITALS: BP 139/72
[2021-01-03 05:41] VITALS: BP 145/76
[2021-01-03 06:37] LABS: HEMATOCRIT 35.6 % (36.0-47.0); HEMOGLOBIN 11.5 g/dL (12.0-15.5); RED BLOOD COUNT 3.72 x10^6/uL (3.50-5.40); RED CELL DISTRIBUTION WIDTH 13.3 % (11.5-14.5)
[2021-01-03 06:54] LABS: ALBUMIN 2.2 g/dL (3.4-5.0); ALBUMIN/GLOBULIN RATIO 0.6 (1.0-1.7); CALCIUM 8.6 mg/dL (8.5-10.1); GFR 24.8; POTASSIUM 3.9 mmol/L (3.5-5.1); TOTAL BILIRUBIN 0.2 mg/dL (0.2-1.0); TOTAL PROTEIN 5.6 g/dL (6.4-8.2)
[2021-01-03] MEDS: MULTIVITAMIN I-VITE TABLET. PO SCH (08:09)
[2021-01-03] MEDS: ASPIRIN CHEWABLE 81 MG TABLET. PO SCH (08:09)
[2021-01-03] MEDS: TIMOLOL 0.5% OPHTH SOLUTION 5ML BOTTLE. OU SCH ×2 (08:11→21:08)
[2021-01-03] MEDS: BRIMONIDINE 0.2% OPHTH SOLUTION 5ML BOTTLE. OU SCH ×2 (08:11→21:08)
[2021-01-03] MEDS: RIVAROXABAN 10 MG TABLET. PO SCH (08:11)
[2021-01-03] MEDS: INSULIN LISPRO 300 UNITS/3 ML VIAL. SQ SCH ×3 (08:13→17:21)
[2021-01-03] MEDS: IV NORMAL SALINE 1,000ML 1,000 ML IV SCH ×2 (08:14→17:22)
--- NOTE | 2021-01-03 10:24 | NUR ---
NURSING NOTE DISCHARGE PLANNING SPOKE WITH PT DAUGHTER ADRIANA, ASKED ABOUT HOW MUCH HELP PT HAS AT HOME, PT HAS FAMILY CLOSE BY THAT CHECKS ON HER SEVERAL TIMES A DAY WELL HOME HEALTH, HOWEVER, ADRIANA STATES SHE WOULDNT MIND HER GOING TO REHAB, THIS HAPPENED A YEAR AGO AND SHE HAD TO GO TO [place] AND DID NOT HAVE ANY TROUBLE THERE. PT CAN USUALLY WALK AND FEED HERSELF AT HOME BUT SINCE HER SYNCOPE/FALLS SHE HAS BEEN WEAK. WILL NOTIFY CASE MANAGEMENT. SHADIA FREDERICK.
[2021-01-03 10:25] VITALS: BP 135/74
--- NOTE | 2021-01-03 13:26 | HP ---
ADMIT DATE: 01/02/2021 HISTORY OF PRESENT ILLNESS: The patient is a 70-year-old female patient who came to the Emergency Room with a complaint of syncope. Apparently, this was an unwitnessed episode. The patient was at home with son who she was ambulating and trying to transfer her from assistive walking device to commode when she felt lightheaded and started sweating. The son noticed that his mother did not look well and guided her to the floor. The son reports to the EMS that the patient passed out and was unresponsive temporarily prompting him to call EMS. The patient was alert, oriented and back to baseline. On arrival by Emergency Medical service personnel fingerstick blood sugar was greater than 120 mg, and the patient was transported to the Emergency Room of [facility]. Apparently, the patient was evaluated in the same Emergency Room about 4 days ago and was found to have non-ST segment elevation myocardial infarction. She left AMA at that time given the fact that she has history of CABG and declined further inpatient medical intervention as she knows she is a poor candidate for surgical intervention versus other intervention. She is also on day [address] [facility] for UTI that was diagnosed by skin lifter bacon in outpatient setting. She otherwise has been compliant with all her medication as scheduled. There was no sick contact, fever, vision change, change in taste or smell, chest pain, shortness of breath, abdominal pain, motor or sensory deficit. She was extensively investigated and was admitted and her lab work showed that she has tawil-xn-cvyfrhs kidney injury. She has also elevated troponin and near syncope. PAST MEDICAL HISTORY: Significant for coronary artery disease, hypertension, cerebrovascular disease, peripheral neuropathy, type 2 diabetes mellitus, hypothyroidism, chronic renal insufficiency, and rheumatoid arthritis. PAST SURGICAL HISTORY: Significant for hysterectomy, tonsillectomy, and thyroidectomy. She did have left heart catheterization and showed that she has quadruple vessel coronary artery surgery and apparently at least when I saw her, she was scheduled for coronary artery bypass surgery; however, it is conditional on quitting her smoking. FAMILY HISTORY: Unremarkable. SOCIAL HISTORY: She lives alone. She continued to smoke, does not drink alcohol or use recreational drugs. ALLERGIES: She has no known drug allergies. MEDICATIONS: She is currently on following medications: She is on pyridostigmine bromide 30 mg every 8 hours as needed, rivaroxaban 2.5 mg daily, aspirin 81 mg once a day, brimonidine eyedrops at bedtime. She is on Lantus insulin 50 units at bedtime, Humalog insulin as insulin sliding scale before meals, levothyroxine sodium 110 mcg daily and abatacept or Orencia 50 mg subQ weekly. She is on PreserVision AREDS soft gel 1 daily and Crestor 40 mg at bedtime. PHYSICAL EXAMINATION: GENERAL: When I examined her, she looked pale, somewhat cachectic, but no jaundice, cyanosis or thyromegaly. No jugular venous distention or limb edema. VITAL SIGNS: Her heart rate was 89, blood pressure was 154/87, temperature was 98.2, respiratory rate was 18 and oxygen saturation was 97%. HEAD, EYES, EARS, NOSE AND THROAT: Showed normocephalic, atraumatic. NECK: Supple. HEART: Showed normal first and second heart sounds. No gallop or murmur. CHEST: Clear to auscultation. No crepitation or rhonchi. ABDOMEN: Scaphoid, soft, nontender. NEUROLOGIC: She is awake, alert, responding appropriately. All her cranial nerves intact. EXTREMITIES: She moves extremities without difficulty. LABORATORY DATA: Showed a serum sodium 138, potassium 4.6, chloride 104, bicarbonate 29, anion gap of 5, BUN 47, creatinine 2.4, estimated GFR was 20 mL per minute and glucose was 80. Her first set of cardiac enzymes showed troponin to be less than 0.078. ASSESSMENT AND PLAN: The patient was admitted with syncopal episode, amqhh-vf-iyfhyob kidney injury and elevated troponin. We will continue with IV fluid, continue with all her medications. I will check her orthostatics and decide on further management accordingly. CAL CONTRERAS MD DR: LORI/nati JOB#: [id number] / [id number]
[2021-01-03 15:06] VITALS: BP 133/72
[2021-01-03 15:07] VITALS: BP_SYST 51; BP_SYST 97; BP_DIAS 36; BP_DIAS 55
--- NOTE | 2021-01-03 15:29 | CONS ---
DATE OF CONSULTATION: 01/03/2021 REASON FOR CONSULTATION: Orthostatic hypotension and near syncope. CONSULTING PHYSICIAN: Dr. Robles. HISTORY OF PRESENT ILLNESS: The patient is a pleasant 70-year-old woman with past medical history as noted below, who presents to the hospital in the setting of a near syncopal episode. She apparently was in her usual state of health, but she was starting to have some lightheadedness and dizziness and apparently her son helped her down to the floor. She has been struggling with UTI and also some sinus congestion, where she has had decreased p.o. intake. She has a known history of orthostatic hypotension and is followed by [facility], where she has been previously treated with midodrine and also pyridostigmine for her orthostasis. The patient denies any syncope, otherwise, at home or recent falls. She reports compliance with her medications. PAST MEDICAL HISTORY: 1. Coronary artery disease, multivessel treated with medical therapy. 2. Hypertension. 3. Peripheral neuropathy. 4. Diabetes. 5. Hypothyroidism. 6. Chronic kidney disease. 7. Rheumatoid arthritis. 8. Prior history of cerebrovascular disease. PAST SURGICAL HISTORY: Notable for hysterectomy, tonsillectomy, and thyroidectomy. ALLERGIES: No known drug allergies. CURRENT CARDIOVASCULAR MEDICATIONS: As follows: Rivaroxaban 2.5 mg p.o. daily, aspirin 81 mg p.o. daily, atorvastatin 80 mg p.o. daily, and pyridostigmine 30 mg p.o. q.8 hours for muscle spasms, but she reports that she was using this for syncope. REVIEW OF SYSTEMS: Negative for 10 out of 14 systems reviewed, unless otherwise mentioned above in the HPI. PHYSICAL EXAMINATION: VITAL SIGNS: Afebrile, pulse 90, respirations 18, and blood pressure 97/55 with orthostatic blood pressure of 51/36 upon standing, 96% on room air. GENERAL: She is weak and fatigued and very thin-appearing, but she is alert and oriented x 3. HEAD AND NECK: Unremarkable. CARDIAC: Regular rate and rhythm with a soft systolic murmur consistent with mitral regurgitation. LUNGS: Clear to auscultation bilaterally anteriorly. ABDOMEN: Soft, nontender, nondistended. EXTREMITIES: Notable for no edema, no clubbing, and no cyanosis with 1+ pedal and radial pulses. NEUROLOGIC: No focal deficits. MUSCULOSKELETAL: No trauma. DIAGNOSTIC STUDIES: Hemoglobin is mildly decreased at 11.5. Creatinine elevated at 2.0, but she states this is her baseline compared to 11/2019. Chest x-ray is unremarkable. EKG is unremarkable. Telemetry is unremarkable. RECOMMENDATIONS: Orthostatic syncope, likely in the setting of neuropathy and prior history of midodrine use. No obvious cardiac arrhythmias noted. Supportive care from a cardiovascular standpoint. No further cardiovascular testing necessary. Continue IV fluids and consider reinitiation of midodrine if she remains orthostatic. Otherwise, follow with [facility] for routine evaluation. Thank you for this consultation. ROSA DAILEY MD DR: BEBETO/nati JOB#: [id number] / [id number]
[2021-01-03] MEDS ORDERED: LEVO500T8 PO (16:16)
--- NOTE | 2021-01-03 16:34 | PN ---
DATE: 01/03/2021 SUBJECTIVE: The patient is resting, slightly propped up, eating her lunch comfortably, in no apparent distress. She is awake and alert. On questioning her, denied any chest pain or shortness of breath. Denied dizziness or lightheadedness. PHYSICAL EXAMINATION: GENERAL: When I examined her, she looked pale, cachectic, but no jaundice, cyanosis, or thyromegaly. No jugular venous distension. No limb edema. VITAL SIGNS: Her heart rate was 71, blood pressure was 135/74, temperature was 97.1, respiratory rate was 16, and oxygen saturation was 98%. HEAD, EYES, EARS, NOSE, AND THROAT: Showed normocephalic, atraumatic. NECK: Supple. HEART: Normal first and second heart sounds. No gallop, rub, or murmur. CHEST: Clear to auscultation. No crepitation or rhonchi. ABDOMEN: Scaphoid, soft, nontender. NEUROLOGIC: She is awake, alert, responding appropriately. All cranial nerves are intact. She moves all her extremities without difficulty. LABORATORY DATA: Her lab work this morning showed serum sodium 141, potassium 3.9, chloride 108, bicarbonate 28, anion gap of 5, BUN of 44, creatinine of 2, estimated GFR was 25 mL per minute. Her glucose 156, calcium was 8.6. Total bilirubin, AST, ALT, and alkaline phosphatase were normal. Total protein 5.6, albumin was 2.2. Her troponins are trending down. Her white cell count was 9000, hemoglobin 11.5, hematocrit 36, MCV 96, and platelet count 214,000. ASSESSMENT: This is a 70-year-old female patient, who was admitted with near syncope, acute on chronic kidney injury, improving. She has non-ST segment elevation myocardial infarction and apparently the patient refused to be admitted at that time and left against medical advice. She has a multitude of other medical problems including: A. Hypertension. B. Coronary artery disease. C. Cerebrovascular accident. D. Peripheral neuropathy. E. Type 2 diabetes mellitus. F. Hypothyroidism. G. Rheumatoid arthritis. CAL CONTRERAS MD DR: LORI/nati JOB#: [id number] / [id number]
[2021-01-03] MEDS: levoFLOXacin 250 MG TABLET PO SCH (17:22)
[2021-01-03] MEDS ORDERED: INSULIN LISPRO 300 UNITS/3 ML VIAL. SQ ONE (17:30)
[2021-01-03 19:08] VITALS: BP 147/68
[2021-01-03] MEDS: ATORVASTATIN CALCIUM 20 MG TABLET PO SCH (21:09)
[2021-01-03] MEDS: INSULIN GLARGINE SYRINGE. SQ SCH (21:24)
[2021-01-03 22:59] VITALS: BP 160/66
[2021-01-04] VITALS (8 sets, daily range): BP systolic 91–186; BP diastolic 57–82
[2021-01-04] MEDS: IV NORMAL SALINE 1,000ML 1,000 ML IV SCH ×4 (01:25→20:41)
[2021-01-04 07:02] LABS: HEMATOCRIT 38.6 % (36.0-47.0); HEMOGLOBIN 12.4 g/dL (12.0-15.5); RED BLOOD COUNT 4.02 x10^6/uL (3.50-5.40); RED CELL DISTRIBUTION WIDTH 13.5 % (11.5-14.5); WHITE BLOOD COUNT 8.3 x10^3/uL (4.0-11.0)
[2021-01-04 07:18] LABS: ALBUMIN 2.4 g/dL (3.4-5.0); ALBUMIN/GLOBULIN RATIO 0.7 (1.0-1.7); CALCIUM 8.4 mg/dL (8.5-10.1); CREATININE 1.6 mg/dL (0.6-1.0); GFR 32.1; POTASSIUM 4.1 mmol/L (3.5-5.1); TOTAL BILIRUBIN 0.3 mg/dL (0.2-1.0); TOTAL PROTEIN 5.9 g/dL (6.4-8.2)
--- NOTE | 2021-01-04 07:55 | PDOC ---
CARDIO Progress Notes Date & Time Date of Service DATE: 01/04/21 TIME: 07:51 Time of Evaluation 07:51 Subjective Notes No dizziness, chest pain, or shortness of breath. Vitals Vitals Vital Signs Date Time Temp Pulse Resp B/P (MAP) Pulse Ox O2 Delivery O2 Flow Rate FiO2 01/04/21 05:06 97.8 71 16 167/69 (101) 96 Room Air Weight Weight [ ] Input and Output I.O. Intake and Output 01/04/21 07:00 Intake Total 1840 ml Balance 1840 ml Intake Oral 840 ml IV Total 1000 ml # Voids 6 Laboratory Labs Laboratory Tests Test 01/02/21 14:58 01/02/21 15:00 01/02/21 19:30 01/02/21 20:16 White Blood Count 10.3 x10^3/uL (4.0-11.0) Red Blood Count 4.24 x10^6/uL (3.50-5.40) Hemoglobin 13.1 g/dL (12.0-15.5) Hematocrit 40.7 % (36.0-47.0) Mean Corpuscular Volume 96 fL (79-100) Mean Corpuscular Hemoglobin 31 pg (25-35) Mean Corpuscular Hemoglobin Concent 32 g/dL (31-37) Red Cell Distribution Width 13.4 % (11.5-14.5) Platelet Count 350 x10^3/uL (140-400) Neutrophils (%) (Auto) 65 % (31-73) Lymphocytes (%) (Auto) 21 % (24-48) Monocytes (%) (Auto) 10 % (0-9) Eosinophils (%) (Auto) 3 % (0-3) Basophils (%) (Auto) 1 % (0-3) Neutrophils # (Auto) 6.7 x10^3uL (1.8-7.7) Lymphocytes # (Auto) 2.2 x10^3/uL (1.0-4.8) Monocytes # (Auto) 1.0 x10^3/uL (0.0-1.1) Eosinophils # (Auto) 0.3 x10^3/uL (0.0-0.7) Basophils # (Auto) 0.1 x10^3/uL (0.0-0.2) Sodium Level 138 mmol/L (136-145) Potassium Level 4.6 mmol/L (3.5-5.1) Chloride Level 104 mmol/L (98-107) Carbon Dioxide Level 29 mmol/L (21-32) Anion Gap 5 (6-14) Blood Urea Nitrogen 47 mg/dL (7-20) Creatinine 2.4 mg/dL (0.6-1.0) Estimated GFR (Cockcroft-Gault) 20.1 Glucose Level 217 mg/dL (70-99) Calcium Level 9.4 mg/dL (8.5-10.1) Troponin I Quantitative 0.078 ng/mL (0-0.055) 0.068 ng/mL (0-0.055) Glucose (Fingerstick) 203 mg/dL (70-99) 413 mg/dL (70-99) Test 01/03/21 05:48 01/03/21 07:38 01/03/21 11:46 01/03/21 17:05 White Blood Count 9.0 x10^3/uL (4.0-11.0) Red Blood Count 3.72 x10^6/uL (3.50-5.40) Hemoglobin 11.5 g/dL (12.0-15.5) Hematocrit 35.6 % (36.0-47.0) Mean Corpuscular Volume 96 fL (79-100) Mean Corpuscular Hemoglobin 31 pg (25-35) Mean Corpuscular Hemoglobin Concent 32 g/dL (31-37) Red Cell Distribution Width 13.3 % (11.5-14.5) Platelet Count 314 x10^3/uL (140-400) Sodium Level 141 mmol/L (136-145) Potassium Level 3.9 mmol/L (3.5-5.1) Chloride Level 108 mmol/L (98-107) Carbon Dioxide Level 28 mmol/L (21-32) Anion Gap 5 (6-14) Blood Urea Nitrogen 44 mg/dL (7-20) Creatinine 2.0 mg/dL (0.6-1.0) Estimated GFR (Cockcroft-Gault) 24.8 BUN/Creatinine Ratio 22 (6-20) Glucose Level 156 mg/dL (70-99) Calcium Level 8.6 mg/dL (8.5-10.1) Total Bilirubin 0.2 mg/dL (0.2-1.0) Aspartate Amino Transf (AST/SGOT) 19 U/L (15-37) Alanine Aminotransferase (ALT/SGPT) 36 U/L (14-59) Alkaline Phosphatase 84 U/L (46-116) Troponin I Quantitative 0.066 ng/mL (0-0.055) Total Protein 5.6 g/dL (6.4-8.2) Albumin 2.2 g/dL (3.4-5.0) Albumin/Globulin Ratio 0.6 (1.0-1.7) Triglycerides Level 79 mg/dL (0-150) Cholesterol Level 116 mg/dL (0-200) LDL Cholesterol, Calculated 53 mg/dL (0-100) VLDL Cholesterol, Calculated 15 mg/dL (0-40) Non-HDL Cholesterol Calculated 68 mg/dL (0-129) HDL Cholesterol 48 mg/dL (40-60) Cholesterol/HDL Ratio 2.0 Glucose (Fingerstick) 156 mg/dL (70-99) 303 mg/dL (70-99) 423 mg/dL (70-99) Test 01/03/21 20:47 01/04/21 07:23 Glucose (Fingerstick) 191 mg/dL (70-99) 111 mg/dL (70-99) Physical Exams HEENT: Neck Supple W Full Motion Chest: Symmetric Lungs: Clear to Auscultation Heart: RRR Extremities: No Edema Neurology: alert, oriented, follow commands Assessment Assessment 1. Near syncope, orthostatic hypotension 2. CATIE on CKD; improved with IVFs 3. Mild troponin elevation; peak 0.078. Most probable type II, demand ischemia. CP free. 4. Coronary artery disease, multivessel treated with medical therapy. 5. Hyperlipidemia 6. Diabetes, II 7. Peripheral neuropathy. 8. Hypothyroidism. 9. H/o CVA Recommendations Ongoing IVFs Compression stocking Repeat orthos Consider Midodrine if she remains orthostatic. Secondary prevention Supportive TOMY MOMIN APRN Jan 04, 2021 07:55
[2021-01-04] MEDS: INSULIN LISPRO 300 UNITS/3 ML VIAL. SQ SCH ×3 (08:00→18:01)
[2021-01-04] MEDS: ASPIRIN CHEWABLE 81 MG TABLET. PO SCH (08:40)
[2021-01-04] MEDS: RIVAROXABAN 10 MG TABLET. PO SCH (08:42)
[2021-01-04] MEDS: BRIMONIDINE 0.2% OPHTH SOLUTION 5ML BOTTLE. OU SCH ×2 (08:44→20:34)
[2021-01-04] MEDS: TIMOLOL 0.5% OPHTH SOLUTION 5ML BOTTLE. OU SCH ×2 (08:44→20:34)
[2021-01-04] MEDS: MULTIVITAMIN I-VITE TABLET. PO SCH (08:47)
--- NOTE | 2021-01-04 14:51 | PN ---
DATE: 01/04/2021 SUBJECTIVE: The patient is resting, slightly propped up in bed, in no apparent respiratory distress. She is sitting comfortably in her chair, in no apparent distress. She continued to have mild postural drop in her blood pressure; however, she was asymptomatic and she continued to be on IV fluid. PHYSICAL EXAMINATION: GENERAL: When I examined her this afternoon, she was pale, but no jaundice, cyanosis or thyromegaly. No jugular venous distension. No lower limb edema. VITAL SIGNS: Her heart rate was 85, blood pressure was 91/57, temperature 97.6, respiratory rate was 20 and oxygen saturation was 96%. HEAD, EYES, EARS, NOSE AND THROAT: Showed normocephalic, atraumatic. NECK: Supple. HEART: Showed normal first and second heart sounds. No gallop or murmur. CHEST: Clear to auscultation. No crepitation or rhonchi. ABDOMEN: Distended, soft, nontender. NEUROLOGIC: She was awake, alert, responding appropriately. All cranial nerves are intact. She moves extremities without difficulty. LABORATORY DATA: Her white cell count was 8300, hemoglobin 12, hematocrit 38, MCV 96, and platelet count 328,000. Her chemistry showed a serum sodium of 145, potassium 4.1, chloride 109, bicarbonate 29, anion gap of 7, BUN 37, creatinine 1.6, estimated GFR was 32 mL per minute. Her glucose 109, calcium was 8.4. Total bilirubin, AST, ALT, alkaline phosphatase were normal. Total protein 5.9, albumin was 2.9. ASSESSMENT: 1. Near-syncope with marked orthostatic hypotension. 2. Acute kidney injury on chronic kidney disease, currently on IV fluid. 3. Mild troponin elevation, likely due to type 2 demand ischemia. 4. Coronary artery disease, multivessel; treated with medical therapy. 5. Hyperlipidemia. 6. Type 2 diabetes mellitus, suboptimally controlled. 7. Peripheral neuropathy. 8. Hypothyroidism. 9. History of cerebrovascular accident. PLAN: Is to discharge her tomorrow to [place] to continue the process of rehabilitation. All the orders are written. CAL CONTRERAS MD DR: LORI/nati JOB#: [id number] / [id number]
[2021-01-04] MEDS: levoFLOXacin 250 MG TABLET PO SCH (17:57)
--- NOTE | 2021-01-04 18:29 | NUR ---
Pt ambulated with walker frequently today in room and to rest room. Pt to be discharged to [place] tomorrow. No complaints of pain or discomfort during shift. CC, RN
[2021-01-04] MEDS: ATORVASTATIN CALCIUM 20 MG TABLET PO SCH (20:32)
[2021-01-04] MEDS: LACTOBACILLUS RHAMNOSUS GG 1 CAPSULE. PO SCH (20:32)
[2021-01-04] MEDS: INSULIN GLARGINE SYRINGE. SQ SCH (20:41)
[2021-01-05] MEDS: IV NORMAL SALINE 1,000ML 1,000 ML IV SCH ×2 (04:27→09:45)
[2021-01-05 05:05] VITALS: BP 157/70
[2021-01-05] MEDS: INSULIN LISPRO 300 UNITS/3 ML VIAL. SQ SCH ×2 (08:00→11:58)
--- NOTE | 2021-01-05 08:12 | DS ---
DATE OF DISCHARGE: 01/05/2021 ATTENDING PHYSICIAN: Dr. Robles. FINAL DISCHARGE DIAGNOSES: 1. Orthostatic hypotension. 2. Near syncope, chronic. 3. Acute kidney injury on chronic kidney disease. 4. Mild elevation of troponin due to type 2 demand ischemia. 5. Coronary artery disease, medically treated. 6. Hyperlipidemia. 7. Type 2 diabetes. 8. Peripheral neuropathy. 9. Hypothyroidism, on replacement. 10. History of old cerebrovascular accident. HISTORY OF PRESENT ILLNESS: This is a 70-year-old female who was admitted through the ED with orthostatic hypotension which is of chronic nature due to diabetic neuropathy. She also has generalized debilitation with rheumatoid arthritis, type 2 diabetes and history of coronary artery disease. PHYSICAL EXAMINATION: Please see the dictated note. PERTINENT LABORATORY AND X-RAY STUDIES: Admission hemoglobin was 13.1 g/dL with white count of 10,300. Chemistry panel: Creatinine was 1.6 mg/dL. This will be followed up as an outpatient. Initial troponin was measured 0.066 which is suggestive of stress demand ischemia. Alcohol level was unremarkable. COURSE IN THE HOSPITAL: The patient was admitted. She was started on IV hydration. Diet was advanced. Home meds continued. Sugars were monitored. Cardiology consultation was obtained, please refer to the dictated note. She did fairly well. Appetite was good and her blood pressure improved. On the fourth hospital day, her blood pressure was 157/70, pulse was 70 and regular. She was afebrile and oxygen saturation 98% on room air. Her heart tones were regular. Lungs were clear. She was ready for discharge to go to subacute rehab at [facility]. Arrangements have been made. Her discharge meds will include the following: She will continue her Orencia weekly, aspirin, Combigan eyedrops, insulin Lantus and regular, Synthroid 112 mcg daily, levofloxacin for UTI until complete, pyridostigmine, Xarelto 10 mg, 2.5 mg daily, Crestor, and multivitamin. Her prognosis is fair. She was discharged then from our hospital in stable condition with explicit instructions and followup care. TOTAL DISCHARGE TIME SPENT: 39 minutes. KAITLIN HULL MD DR: SONIA/nati JOB#: [id number] / [id number]
--- NOTE | 2021-01-05 08:32 | PDOC ---
CARDIO Progress Notes Date & Time Date of Service DATE: 01/05/21 TIME: 08:27 Time of Evaluation 08:27 Subjective Notes no dizziness, diaphoresis, chest pain, or SOA Vitals Vitals Vital Signs Date Time Temp Pulse Resp B/P (MAP) Pulse Ox O2 Delivery O2 Flow Rate FiO2 01/05/21 05:05 97.9 70 20 157/70 (99) 98 Room Air Weight Weight [ ] Input and Output I.O. Intake and Output 01/05/21 07:00 Intake Total 2570 ml Balance 2570 ml Intake Oral 1570 ml IV Total 1000 ml # Voids 7 # Bowel Movements 1 Laboratory Labs Laboratory Tests Test 01/03/21 11:46 01/03/21 17:05 01/03/21 20:47 01/04/21 06:22 Glucose (Fingerstick) 303 mg/dL (70-99) 423 mg/dL (70-99) 191 mg/dL (70-99) White Blood Count 8.3 x10^3/uL (4.0-11.0) Red Blood Count 4.02 x10^6/uL (3.50-5.40) Hemoglobin 12.4 g/dL (12.0-15.5) Hematocrit 38.6 % (36.0-47.0) Mean Corpuscular Volume 96 fL (79-100) Mean Corpuscular Hemoglobin 31 pg (25-35) Mean Corpuscular Hemoglobin Concent 32 g/dL (31-37) Red Cell Distribution Width 13.5 % (11.5-14.5) Platelet Count 328 x10^3/uL (140-400) Sodium Level 145 mmol/L (136-145) Potassium Level 4.1 mmol/L (3.5-5.1) Chloride Level 109 mmol/L (98-107) Carbon Dioxide Level 29 mmol/L (21-32) Anion Gap 7 (6-14) Blood Urea Nitrogen 37 mg/dL (7-20) Creatinine 1.6 mg/dL (0.6-1.0) Estimated GFR (Cockcroft-Gault) 32.1 BUN/Creatinine Ratio 23 (6-20) Glucose Level 109 mg/dL (70-99) Calcium Level 8.4 mg/dL (8.5-10.1) Total Bilirubin 0.3 mg/dL (0.2-1.0) Aspartate Amino Transf (AST/SGOT) 21 U/L (15-37) Alanine Aminotransferase (ALT/SGPT) 34 U/L (14-59) Alkaline Phosphatase 87 U/L (46-116) Total Protein 5.9 g/dL (6.4-8.2) Albumin 2.4 g/dL (3.4-5.0) Albumin/Globulin Ratio 0.7 (1.0-1.7) Test 01/04/21 07:23 01/04/21 12:22 01/04/21 17:56 01/04/21 20:31 Glucose (Fingerstick) 111 mg/dL (70-99) 359 mg/dL (70-99) 333 mg/dL (70-99) 390 mg/dL (70-99) Test 01/05/21 07:30 Glucose (Fingerstick) 71 mg/dL (70-99) Physical Exams HEENT: Neck Supple W Full Motion Chest: Symmetric Lungs: Clear to Auscultation Heart: RRR Extremities: No Edema Neurology: alert, oriented, follow commands Assessment Assessment 1. Near syncope, orthostatic hypotension 2. CATIE on CKD; improved with IVFs 3. Mild troponin elevation; peak 0.078. Most probable type II, demand ischemia. CP free. 4. Coronary artery disease, multivessel treated with medical therapy. 5. Hyperlipidemia 6. Diabetes, II 7. Peripheral neuropathy. 8. Hypothyroidism. 9. H/o CVA Recommendations Compression stocking Change positions slowly Consider resumption of Midodrine Secondary prevention Supportive care Follow up with [facility] cardiology team TOMY MOMIN APRN Jan 05, 2021 08:32
[2021-01-05] MEDS: MULTIVITAMIN I-VITE TABLET. PO SCH (09:19)
[2021-01-05] MEDS: ASPIRIN CHEWABLE 81 MG TABLET. PO SCH (09:19)
[2021-01-05] MEDS: LACTOBACILLUS RHAMNOSUS GG 1 CAPSULE. PO SCH (09:19)
[2021-01-05] MEDS: RIVAROXABAN 10 MG TABLET. PO SCH (09:19)
[2021-01-05] MEDS: TIMOLOL 0.5% OPHTH SOLUTION 5ML BOTTLE. OU SCH (09:20)
[2021-01-05] MEDS: BRIMONIDINE 0.2% OPHTH SOLUTION 5ML BOTTLE. OU SCH (09:20)
--- NOTE | 2021-01-05 10:12 | NUR ---
DISCHARGE PLANNING This RN spoke with Viola (case management). Pt has yet to receive COVID 19 vaccinations so rapid COVID test needed to dc to [place]. Nasal swab test ordered, preformed and delivered to lab. Will continue to monitor. CC, RN
[2021-01-05 10:33] VITALS: BP 169/71
--- NOTE | 2021-01-05 13:10 | NUR ---
DISCHARGE UPDATE Pt now discharging with HH and family is picking her up at 4pm today. Pt updated on discharge plan. CC, RN
--- NOTE | 2021-01-05 16:23 | NUR ---
Discharge Pt discharged with home health to residence. Pt to be transported home via EMS and daughter will be awaiting pt arrival. Pt verbalized understanding of discharge paperwork and all questions addressed. CC, RN
[2021-01-09] MEDS ORDERED: ABATACEPT SQ SCH (09:00)
== END 2021-01-05 16:45 | disposition home health service (06) | DRG 682 ==
LOC: ER 14:53 → 1 SOUTH 16:16
PROVIDERS: ADMIT Internal Medicine; ATTEND Internal Medicine
DX: N17.0 Acute kidney failure with tubular necrosis (principal); E43 Unspecified severe protein-calorie malnutrition; N39.0 Urinary tract infection, site not specified; Z68.1 Body mass index [BMI] 19.9 or less, adult; E11.42 Type 2 diabetes mellitus with diabetic polyneuropathy; I95.1 Orthostatic hypotension; Z20.822 Contact with and (suspected) exposure to COVID-19; E11.22 Type 2 diabetes mellitus with diabetic chronic kidney disease; E78.5 Hyperlipidemia, unspecified; E89.0 Postprocedural hypothyroidism; M06.9 Rheumatoid arthritis, unspecified; N18.9 Chronic kidney disease, unspecified; I12.9 Hypertensive chronic kidney disease with stage 1 through stage 4 chronic kidney disease, or unspecified chronic kidney disease; I25.10 Atherosclerotic heart disease of native coronary artery without angina pectoris; Z96.649 Presence of unspecified artificial hip joint; I25.2 Old myocardial infarction; Z86.73 Personal history of transient ischemic attack (TIA), and cerebral infarction without residual deficits; Z90.710 Acquired absence of both cervix and uterus; Z95.1 Presence of aortocoronary bypass graft
CPT/HCPCS: 36415; 71045; 80048; 80053; 80061; 82947; 84484; 85025; 85027; 87426; 93005; J1815; U0003; 97530; 99285-25; J7030